=== PATIENT | male | born 1940 | race Two or more races ===

== ENCOUNTER → 2017-02-15 | Outpatient (REF) | payer MEDICARE ==
[2017-02-15 13:48] LABS: CALCIUM LEVEL 9.1 MG/DL (8.8-10.2); CREATININE FOR GFR 1.33 MG/DL (0.70-1.30); GLOMERULAR FILTRATION RATE 55.8 (>42); POTASSIUM SERUM 4.4 MEQ/L (3.5-5.1)
== END ==
LOC: M SFHCPLAZ 10:30
PROVIDERS: ATTEND Family Medicine
DX: E11.21 Type 2 diabetes mellitus with diabetic nephropathy (principal)
CPT/HCPCS: 80048; 83036; G0463

== ENCOUNTER → 2017-10-06 | Outpatient (REF) | payer MEDICARE ==
[2017-10-06 13:11] LABS: ANION GAP 8 MEQ/L (8-16); BLOOD UREA NITROGEN 18 MG/DL (7-18); CALCIUM LEVEL 9.4 MG/DL (8.8-10.2); CARBON DIOXIDE LEVEL 30 MEQ/L (21-32); CHLORIDE LEVEL 103 MEQ/L (98-107); CHOLESTEROL LEVEL 140 MG/DL (<200); CHOLESTEROL RISK RATIO 3.043 (<5); CREATININE FOR GFR 1.14 MG/DL (0.70-1.30); GLOMERULAR FILTRATION RATE > 60.0 (>42); GLUCOSE, FASTING 158 MG/DL (70-100); HDL CHOLESTEROL 46 MG/DL (>40); LDL CHOLESTEROL 61.4 MG/DL (<100); NON-HDL-C 94 MG/DL; POTASSIUM SERUM 4.7 MEQ/L (3.5-5.1); PSA SCREENING 2.16 NG/ML (< 4.0); SODIUM LEVEL 141 MEQ/L (136-145); TRIGLYCERIDES LEVEL 163 MG/DL (<150)
[2017-10-06 13:18] LABS: ESTIMATED AVERAGE GLUCOSE 151 MG/DL (60-110); HEMOGLOBIN A1c 6.9 %
[2017-10-06 13:20] LABS: MAU/CREAT RATIO 75.7 MCG/MG (0.0-30.0)
== END ==
LOC: M SFHCPLAZ 08:07
DX: Z12.5 Encounter for screening for malignant neoplasm of prostate (principal); E11.9 Type 2 diabetes mellitus without complications
CPT/HCPCS: 83036

== ENCOUNTER → 2017-12-05 | Outpatient (REF) | payer MEDICARE ==
[2017-12-05 18:42] LABS: ANION GAP 7 MEQ/L (8-16); BLOOD UREA NITROGEN 18 MG/DL (7-18); CALCIUM LEVEL 9.5 MG/DL (8.8-10.2); CARBON DIOXIDE LEVEL 26 MEQ/L (21-32); CHLORIDE LEVEL 105 MEQ/L (98-107); CREATININE FOR GFR 1.45 MG/DL (0.70-1.30); GLOMERULAR FILTRATION RATE 50.4 (>42); GLUCOSE, FASTING 168 MG/DL (70-100); POTASSIUM SERUM 4.3 MEQ/L (3.5-5.1); SODIUM LEVEL 138 MEQ/L (136-145)
== END ==
LOC: M LABDRAWP 17:14
DX: N17.9 Acute kidney failure, unspecified (principal)
CPT/HCPCS: 80048

== ENCOUNTER → 2017-12-07 | Outpatient (REF) | payer MEDICARE ==
[2017-12-07 14:11] LABS: APPEARANCE, URINE MANUAL HAZY (CLEAR); COLOR, URINE MANUAL YELLOW (YELLOW)
[2017-12-07 14:12] LABS: BILIRUBIN, URINE MANUAL NEGATIVE (NEGATIVE); BLOOD URINE MANUAL POSITIVE (NEGATIVE); GLUCOSE, URINE (UA) MANUAL TRACE(50 MG/DL) mg/dL (NEGATIVE); KETONE, URINE MANUAL NEGATIVE (NEGATIVE); LEUKOCYTE ESTERASE, URINE MAN POSITIVE (NEGATIVE); MICROSCOPIC INDICATED? MAN YES (NO); NITRITE, URINE MANUAL NEGATIVE (NEGATIVE); PROTEIN, URINE MANUAL 2+ mg/dL (NEGATIVE); RBC, URINE 20-30 /hpf (0-3); SPECIFIC GRAVITY,URINE MANUAL 1.025 (1.002-1.035); UROBILINOGEN, URINE MANUAL NORMAL (NORMAL)
[2017-12-07 14:13] LABS: AMORPHOUS SEDIMENT, URINE SMALL AMOUNT (NEGATIVE); BACTERIA, URINE SMALL AMOUNT; HYALINE CAST, URINE 0-1 /lpf (0-1); MICROSCOPIC EXAM PERFORMED; MUCUS, URINE MOD AMOUNT (NEGATIVE); SQUAMOUS EPITHELIAL CELL URINE SMALL AMOUNT /hpf (SMALL AMT)
== END ==
LOC: M SMT 13:12
DX: Z01.818 Encounter for other preprocedural examination (principal); N20.0 Calculus of kidney
CPT/HCPCS: 81000

== ENCOUNTER → 2017-12-07 | Outpatient (CLI) | payer MEDICARE | LOC: M SMT 13:57 | DX: Z01.818 Encounter for other preprocedural examination (principal); N20.0 Calculus of kidney ==

== ENCOUNTER → 2017-12-07 | Outpatient (CLI) | payer MEDICARE ==
[2017-12-07 18:19] LABS: INR 1.02; PROTHROMBIN TIME 13.5 SECONDS (12.4-14.5)
[2017-12-07 18:53] LABS: ANION GAP 6 MEQ/L (8-16); BLOOD UREA NITROGEN 19 MG/DL (7-18); CALCIUM LEVEL 8.9 MG/DL (8.8-10.2); CARBON DIOXIDE LEVEL 28 MEQ/L (21-32); CHLORIDE LEVEL 107 MEQ/L (98-107); CREATININE FOR GFR 1.46 MG/DL (0.70-1.30); GLUCOSE, FASTING 197 MG/DL (70-100); POTASSIUM SERUM 4.6 MEQ/L (3.5-5.1); SODIUM LEVEL 141 MEQ/L (136-145)
[2017-12-07 18:54] LABS: HEMATOCRIT 49.8 % (42.0-52.0); HEMOGLOBIN 16.3 g/dl (13.5-17.5); MEAN CORPUSCULAR HEMOGLOBIN 29.2 pg (27.0-33.0); MEAN CORPUSCULAR HGB CONC 32.7 g/dl (32.0-36.5); MEAN CORPUSCULAR VOLUME 89.2 fl (80.0-96.0); PLATELET COUNT, AUTOMATED 332 10^3/uL (150-450); RED BLOOD COUNT 5.58 10^6/uL (4.30-6.10); RED CELL DISTRIBUTION WIDTH 14.6 % (11.5-14.5); WHITE BLOOD COUNT 13.6 10^3/uL (4.0-10.0)
== END ==
LOC: M SMT 14:21
DX: Z01.818 Encounter for other preprocedural examination (principal); N20.0 Calculus of kidney
CPT/HCPCS: 80048

== ENCOUNTER 2017-12-19 06:58 | Day surgery (SDC) | payer MEDICARE ==
[2017-12-19] MEDS ORDERED: LR 1,000 ML IV ×2 (07:45→12:45)
[2017-12-19 07:47] LABS: BEDSIDE GLUCOSE 179 MG/DL (83-110)
[2017-12-19] MEDS ORDERED: fentaNYL 100 MCG/2 ML INJECTION (J3010) As Ordered (08:04)
[2017-12-19] MEDS ORDERED: PROPOFOL 200 MG/20 ML VIAL As Ordered (08:04)
[2017-12-19] MEDS ORDERED: LIDOCAINE 2% INJ 100 MG/5 ML SDV (FOR ANES.) As Ordered (08:04)
[2017-12-19] MEDS ORDERED: MIDAZOLAM INJ 2 MG/2 ML VIAL (J2250) As Ordered (08:04)
[2017-12-19] MEDS ORDERED: ATENOLOL 25 MG TAB As Ordered (08:07)
[2017-12-19] MEDS ORDERED: ATENOLOL 25 MG TAB PO (08:15)
[2017-12-19] MEDS ORDERED: ONDANSETRON 4MG/2ML VIAL (J2405) As Ordered ×2 (08:44→09:59)
[2017-12-19] MEDS ORDERED: ePHEDrine SULFATE 25 MG/5 ML(5MG/ML) SYRINGE As Ordered (09:39)
[2017-12-19] MEDS ORDERED: KETOROLAC 60 MG/2 ML VIAL (J1885) As Ordered (09:59)
[2017-12-19] MEDS ORDERED: METOCLOPRAMIDE INJ 10MG/2ML VIAL (J2765) As Ordered (09:59)
[2017-12-19] MEDS ORDERED: diphenhydrAMINE INJ 50MG/ML VIAL (J1200) As Ordered (09:59)
[2017-12-19] MEDS: CONRAY-60 60% 50ML VIAL (Q9961) As Ordered (10:00)
[2017-12-19] MEDS ORDERED: oxyBUTYnin 5 MG TAB PO (12:30)
[2017-12-19] MEDS ORDERED: PERCOCET 5MG/325MG TAB PO ×2 (12:30)
[2017-12-19] MEDS ORDERED: ONDANSETRON 4MG/2ML VIAL (J2405) IV (12:45)
[2017-12-19] MEDS ORDERED: fentaNYL 100 MCG/2 ML INJECTION (J3010) IV (12:45)
== END 2017-12-19 12:56 | disposition home or self-care (01) ==
LOC: M SDC 06:58
DX: N20.0 Calculus of kidney (principal); I25.10 Atherosclerotic heart disease of native coronary artery without angina pectoris; I25.2 Old myocardial infarction; E78.5 Hyperlipidemia, unspecified; Z79.82 Long term (current) use of aspirin; K21.9 Gastro-esophageal reflux disease without esophagitis; E11.9 Type 2 diabetes mellitus without complications; Z79.899 Other long term (current) drug therapy
CPT/HCPCS: 52356

== ENCOUNTER → 2018-02-24 | Outpatient (CLI) | payer MEDICARE ==
[2018-02-24 17:45] LABS: CHOLESTEROL LEVEL 151 MG/DL (<200); CHOLESTEROL RISK RATIO 3.355 (<5); HDL CHOLESTEROL 45 MG/DL (>40); LDL CHOLESTEROL 84.4 MG/DL (<100); NON-HDL-C 106 MG/DL; TRIGLYCERIDES LEVEL 108 MG/DL (<150)
== END ==
LOC: M WUC 12:23
DX: I25.10 Atherosclerotic heart disease of native coronary artery without angina pectoris (principal)
CPT/HCPCS: 80061

== ENCOUNTER → 2018-05-10 | Outpatient (REF) | payer MEDICARE | LOC: M SFHCPLAZ 09:05 | DX: R06.09 Other forms of dyspnea (principal); E11.9 Type 2 diabetes mellitus without complications; R31.9 Hematuria, unspecified; Z53.8 Procedure and treatment not carried out for other reasons ==

== ENCOUNTER → 2018-06-07 | Outpatient (REF) | payer MEDICARE ==
[2018-06-07 10:39] LABS: BASO # 0.1 10^3/uL (0.0-0.2); BASO % 0.6 % (0.0-1.0); EOS # 0.2 10^3/uL (0.0-0.50); EOS % 1.8 % (0.0-3.0); HEMATOCRIT 51.2 % (42.0-52.0); IMMATURE GRANULOCYTE % 0.5 % (0-3.0); LYMPH # 2.4 10^3/uL (1.5-4.5); LYMPH % 22.7 % (24.0-44.0); MEAN CORPUSCULAR HEMOGLOBIN 30.1 pg (27.0-33.0); MEAN CORPUSCULAR HGB CONC 33.2 g/dl (32.0-36.5); MEAN CORPUSCULAR VOLUME 90.6 fl (80.0-96.0); MONO # 0.8 10^3/uL (0.0-0.8); MONO % 7.5 % (0.0-5.0); NEUTROPHILS # 7.1 10^3/uL (1.8-7.7); NEUTROPHILS % 66.9 % (36.0-66.0); PLATELET COUNT, AUTOMATED 256 10^3/uL (150-450); RED BLOOD COUNT 5.65 10^6/uL (4.30-6.10); RED CELL DISTRIBUTION WIDTH 14.2 % (11.5-14.5); WHITE BLOOD COUNT 10.6 10^3/uL (4.0-10.0)
[2018-06-07 10:40] LABS: APPEARANCE, URINE CLEAR (CLEAR); BACTERIA, URINE AUTO NEGATIVE (NEGATIVE); BILIRUBIN, URINE AUTO NEGATIVE (NEGATIVE); BLOOD, URINE BLOOD NEGATIVE (NEGATIVE); COLOR, URINE YELLOW (YELLOW); GLUCOSE, URINE (UA) AUTO 2+ mg/dL (NEGATIVE); KETONE, URINE AUTO NEGATIVE (NEGATIVE); LEUKOCYTE ESTERASE, URINE AUTO NEGATIVE (NEGATIVE); MUCUS, URINE SMALL (NEGATIVE); NITRITE, URINE AUTO NEGATIVE (NEGATIVE); PROTEIN, URINE AUTO NEGATIVE (NEGATIVE); RBC, URINE AUTO 1 /HPF (0-3); SQUAMOUS EPITHELIAL CELL UR AU 0 /HPF (0-6); WBC, URINE AUTO 1 /HPF (0-3)
[2018-06-07 11:05] LABS: ANION GAP 9 MEQ/L (8-16); BLOOD UREA NITROGEN 18 MG/DL (7-18); CALCIUM LEVEL 9.4 MG/DL (8.8-10.2); CARBON DIOXIDE LEVEL 25 MEQ/L (21-32); CHLORIDE LEVEL 106 MEQ/L (98-107); CREATININE FOR GFR 1.27 MG/DL (0.70-1.30); GLOMERULAR FILTRATION RATE 58.5 (>42); GLUCOSE, FASTING 205 MG/DL (70-100); NT-PRO BNP 53 PG/ML (<450); POTASSIUM SERUM 4.5 MEQ/L (3.5-5.1); SODIUM LEVEL 140 MEQ/L (136-145)
[2018-06-07 13:28] LABS: MALB URINE SIEMENS 83.6 MG/L
[2018-06-07 13:30] LABS: MAU/CREAT RATIO 46.7 MCG/MG (0.0-30.0)
== END ==
LOC: M SFHCPLAZ 08:06
DX: R06.09 Other forms of dyspnea (principal); E11.9 Type 2 diabetes mellitus without complications; R31.9 Hematuria, unspecified
CPT/HCPCS: 82043

== ENCOUNTER → 2018-10-16 | Outpatient (REF) | payer MEDICARE ==
[~2018-10-16] MED LIST: ASPI1TAB15 PO; ATOR80TA59 PO; CEFD1CAP8 PO; FLOM0.4C39 PO; GLIP5TAB20 PO; HYDR12CA PO; LISI-542 PO; METF500T4 PO; TENO1TAB3 PO; TRAV04OPD OU
[2018-10-16 11:17] LABS: CALCIUM LEVEL 8.7 MG/DL (8.8-10.2); CHOLESTEROL RISK RATIO 2.5 (<5); CREATININE FOR GFR 1.37 MG/DL (0.70-1.30); GLOMERULAR FILTRATION RATE 53.6 (>42); HEMOGLOBIN A1c 8.4 %
[2018-10-16 11:19] LABS: MAU/CREAT RATIO 70.6 MCG/MG (0.0-30.0)
== END ==
LOC: M SFHCPLAZ 09:04
PROVIDERS: ATTEND Family Medicine
DX: E11.21 Type 2 diabetes mellitus with diabetic nephropathy (principal); E78.2 Mixed hyperlipidemia

== ENCOUNTER → 2019-07-16 | Outpatient (REF) | payer MEDICARE ==
[~2019-07-16] MED LIST changes: +METF-791 PO; -METF500T4 PO
[2019-07-16 14:20] LABS: CALCIUM LEVEL 9.4 MG/DL (8.8-10.2); CREATININE FOR GFR 1.37 MG/DL (0.70-1.30); GLOMERULAR FILTRATION RATE 53.5 (>42); POTASSIUM SERUM 5.1 MEQ/L (3.5-5.1)
[2019-07-16 14:43] LABS: HEMOGLOBIN A1c 7.9 %
== END ==
LOC: M SFHCSACK 10:26
PROVIDERS: ATTEND Physician Assistant
DX: E11.21 Type 2 diabetes mellitus with diabetic nephropathy (principal)

== ENCOUNTER → 2019-08-03 | Outpatient (CLI) | payer MEDICARE ==
[2019-08-03 20:33] LABS: CALCIUM LEVEL 9.8 MG/DL (8.8-10.2); CREATININE FOR GFR 1.39 MG/DL (0.70-1.30); GLOMERULAR FILTRATION RATE 52.6 (>42); POTASSIUM SERUM 4.7 MEQ/L (3.5-5.1)
== END ==
LOC: M WUC 16:55
PROVIDERS: ATTEND Nurse Practitioner Family
DX: K59.01 Slow transit constipation (principal)

== ENCOUNTER → 2019-08-08 | Outpatient (CLI) | payer MEDICARE ==
[~2019-08-08] MED LIST changes: +GASTROGRAFIN SOLUTION 30ML (Q9963) As Ordered ONE; +ISOVUE-370 76% 100ML VIAL (Q9967) As Ordered ONE
--- NOTE | 2019-08-08 17:38 | REP ---
HISTORY: History of pancreatic mass. COMPARISON: The only prior for comparison is 12/01/2017, a noncontrast enhanced exam. CONTRAST: 100 mL [id number]. There are scattered patchy densities in the lung bases having the appearance of fibrotic and/or subsegmental atelectatic changes. When compared with the prior exam, they appear stable. Seen at the hepatic dome, there is a tiny unchanged low density lesion measuring less than a centimeter. Seen more posteriorly at the same level, there is a new 1.1 cm sized low density focus. These areas are seen on both immediate and delayed imaging. There are no definite enhancing masses. The spleen, adrenal glands, and kidneys are unchanged. There are multiple large bilateral renal cysts. The hydronephrosis seen previously and on the right is no longer present. There is a mass in the head of the pancreas which measures 3.3 x 3.7 x 3.2 cm. It is better imaged on today's contrast enhanced examination compared to the prior noncontrast enhanced examination, but it appears to have increased in size. No peripancreatic adenopathy has developed. The abdominal aorta and periaortic regions are unchanged. No free fluid or free air is seen in the abdomen. The bowel loops and their mesenteries are unchanged and again seen to be within normal limits. CT PELVIS: Once again, there are surgical clips in the pelvis, status quo. There is no pelvic mass or adenopathy. 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 There is no free fluid or free air. The bowel loops and their mesenteries are within normal limits. Bone window technique throughout the examination shows no significant change in the appearance of the osseous structures. IMPRESSION: 1. Two hepatic lesions as described above. Etiology uncertain but one of the two appears stable. I cannot confirm the second lesion was present on the prior exam. Abdominal MRI is recommended. 2. Pancreatic head mass as described above. Consider further evaluation with pancreatic MRI. 3. Stable appearing bilateral renal cysts. 4. No change in the appearance of the prostate gland. It appears asymmetric. Consider urological consultation. 5. Other findings as described above. Electronically Signed by Stephen Hernandez DO 08/09/2019 04:14 P
== END ==
LOC: M RAD 14:27
PROVIDERS: ATTEND Nurse Practitioner Family
DX: K86.89 Other specified diseases of pancreas (principal); K76.89 Other specified diseases of liver; N28.1 Cyst of kidney, acquired
CPT/HCPCS: 74177; Q9963; Q9967

== ENCOUNTER → 2019-08-31 | Outpatient (CLI) | payer MEDICARE ==
[~2019-08-31] MED LIST changes: -GASTROGRAFIN SOLUTION 30ML (Q9963) As Ordered ONE; -ISOVUE-370 76% 100ML VIAL (Q9967) As Ordered ONE
[2019-08-31 14:06] LABS: ALBUMIN 3.6 GM/DL (3.2-5.2); BILIRUBIN,DIRECT 0.2 MG/DL (0.0-0.2); BILIRUBIN,TOTAL 0.7 MG/DL (0.2-1.0); CHOLESTEROL RISK RATIO 3.642 (<5); TOTAL PROTEIN 7.1 GM/DL (6.4-8.2)
== END ==
LOC: M WUC 10:44
PROVIDERS: ATTEND Internal Medicine Cardiovascular Disease
DX: I25.10 Atherosclerotic heart disease of native coronary artery without angina pectoris (principal)

== ENCOUNTER → 2019-09-05 | Outpatient (CLI) | payer MEDICARE ==
[~2019-09-05] MED LIST changes: +PROHANCE 279.3MG/ML 5ML VIAL (A9576) As Ordered ONE
--- NOTE | 2019-09-05 11:53 | REP ---
MRI ABDOMEN AND PANCREAS WITHOUT AND WITH IV GADOLINIUM: HISTORY: Pancreatic mass. Comparison is made with CT studies of the abdomen from August 08, 2019 and December 01, 2017. These have shown a low-density lesion in the pancreatic head. TECHNIQUE: Axial and coronal imaging planes utilized. T1- and T2-weighted sequences include spin-echo, fast spin echo, in- and [id number], and dynamically acquired sequential post contrast images. Contrast enhancement dose is 9 mL of intravenous ProHance, half-dose protocol. MRI FINDINGS: T2-weighted precontrast images confirm the presence of a cystic mass occupying the head of the pancreas. This corresponds to the CT findings. This measures 3.6 cm in greatest diameter x 2.6 x 2.9 cm. On T2-weighted scans it appears to be multicystic with thin septations between subcentimeter cystic components. It does not show discernible contrast enhancement on dynamically acquired post contrast imaging. There is no evidence of a central scar or CT evidence of calcification within the lesion. It is low T1 in signal intensity. T2-weighted scans also show a few scattered tiny cyst in the body of the pancreas. There are simple cysts in each kidney and there are several small hepatic cysts. No liver mass lesion is seen. There is no evidence of retroperitoneal or upper abdominal lymphadenopathy. No biliary ductal dilation is observed. The main pancreatic duct is not dilated. The lesion does not appear to have change substantially in the interval since the December 01, 2017 prior study. There are some pancreatic calcifications adjacent to the lesion anteriorly on the CT images. IMPRESSION: There is a 3.6 cm cystic mass in the head of the pancreas with nonenhancing small sub-centimeter cystic components. Slow apparent growth. Findings most compatible with serous cystadenoma or branch duct type intraductal papillary mucinous neoplasm (IPMN). Electronically Signed by Alex Underwood MD 09/05/2019 06:16 P
== END ==
LOC: M RAD 08:36
PROVIDERS: ATTEND Nurse Practitioner Family
DX: K86.89 Other specified diseases of pancreas (principal)
CPT/HCPCS: 74183; A9576

== ENCOUNTER → 2019-10-01 | Outpatient (CLI) | payer MEDICARE ==
[~2019-10-01] MED LIST changes: -PROHANCE 279.3MG/ML 5ML VIAL (A9576) As Ordered ONE
[2019-10-01 14:43] LABS: ALBUMIN 3.5 GM/DL (3.2-5.2); ALT/SGPT 21 U/L (12-78); BILIRUBIN,TOTAL 0.6 MG/DL (0.2-1.0); BLOOD UREA NITROGEN 15 MG/DL (7-18); CALCIUM LEVEL 9.5 MG/DL (8.8-10.2); CARBON DIOXIDE LEVEL 27 MEQ/L (21-32); CHLORIDE LEVEL 104 MEQ/L (98-107); CHOLESTEROL LEVEL 138 MG/DL (<200); CHOLESTEROL RISK RATIO 3.631 (<5); CREATININE FOR GFR 1.22 MG/DL (0.70-1.30); GLOMERULAR FILTRATION RATE > 60.0 (>42); GLUCOSE, FASTING 110 MG/DL (70-100); HDL CHOLESTEROL 38 MG/DL (>40); LDL CHOLESTEROL 75 MG/DL (<100); NON-HDL-C 100 MG/DL; POTASSIUM SERUM 4.6 MEQ/L (3.5-5.1); SODIUM LEVEL 140 MEQ/L (136-145); TOTAL PROTEIN 7.1 GM/DL (6.4-8.2); TRIGLYCERIDES LEVEL 125 MG/DL (<150)
[2019-10-01 18:00] LABS: HEMOGLOBIN A1c 7.7 %
== END ==
LOC: M WUC 11:20
PROVIDERS: ATTEND Nurse Practitioner Family
DX: E11.21 Type 2 diabetes mellitus with diabetic nephropathy (principal); E78.2 Mixed hyperlipidemia; N40.0 Benign prostatic hyperplasia without lower urinary tract symptoms
CPT/HCPCS: 36415; 80053; 80061; 83036; G0103

== ENCOUNTER → 2020-02-25 | Outpatient (CLI) | payer MEDICARE ==
[~2020-02-25] MED LIST changes: -METF-791 PO; +METF-838 PO
== END ==
LOC: M LABSMTC 09:48
PROVIDERS: ATTEND Anesthesiology
DX: Z03.818 Encounter for observation for suspected exposure to other biological agents ruled out (principal); Z11.59 Encounter for screening for other viral diseases
CPT/HCPCS: C9803; U0003

== ENCOUNTER 2020-02-28 06:54 | Day surgery (SDC) | payer MEDICARE ==
[~2020-02-28] VITALS: Ht 167.6 cm; Wt 93.0 kg
[~2020-02-28 06:54] MED LIST changes: +CEFUROXIME 1MG/0.1ML INTRACAMERAL INJ As Ordered ONE; +DUOVISC (0.50ML VISCOAT/0.55ML PROVISC) OPHTH KIT As Ordered ONE; +POVIDONE-IODINE 5% OPHTH PREP SOL 30ML As Ordered ONE
[2020-02-28] MEDS ORDERED: TROPICAMIDE 1% OPHTH SOLN 2ML OS ONE (07:00)
[2020-02-28] MEDS ORDERED: PROPARACAINE 0.5% OPHTH SOL 15ML OS ONE (07:00)
[2020-02-28] MEDS ORDERED: OFLOXACIN 0.3 % (OCUFLOX) OPTH SOL 5ML OS ONE (07:00)
[2020-02-28] MEDS ORDERED: PHENYLEPHRINE 2.5% OPHTH SOL 2ML OS ONE (07:00)
[2020-02-28] MEDS ORDERED: fentaNYL 100 MCG/2 ML INJECTION (J3010) As Ordered ONE (07:57)
[2020-02-28] MEDS ORDERED: MIDAZOLAM INJ 2MG/2ML VIAL (J2250 PER 1MG) As Ordered ONE (07:57)
[2020-02-28] MEDS ORDERED: BSS IRR 500ML/OMIDRIA 4ML IRR BAG (OR ONLY) (J1097 PER ML) As Ordered ONE (08:19)
[2020-02-28 09:00] VITALS: BP 130/67
== END 2020-02-28 09:30 | disposition home or self-care (01) ==
LOC: M SDC 06:54
PROVIDERS: ATTEND Ophthalmology
DX: H25.12 Age-related nuclear cataract, left eye (principal); I25.2 Old myocardial infarction; I10 Essential (primary) hypertension; E78.00 Pure hypercholesterolemia, unspecified; Z98.61 Coronary angioplasty status; E11.9 Type 2 diabetes mellitus without complications; K21.9 Gastro-esophageal reflux disease without esophagitis; Z79.82 Long term (current) use of aspirin; Z79.84 Long term (current) use of oral hypoglycemic drugs; Z79.899 Other long term (current) drug therapy
CPT/HCPCS: 66984; 92015; J1097; J2250; J3010; V2632

== ENCOUNTER → 2020-03-08 | Outpatient (CLI) | payer MEDICARE ==
[~2020-03-08] MED LIST changes: +ASPI-546 PO; -ASPI1TAB15 PO; -CEFUROXIME 1MG/0.1ML INTRACAMERAL INJ As Ordered ONE; -DUOVISC (0.50ML VISCOAT/0.55ML PROVISC) OPHTH KIT As Ordered ONE; -POVIDONE-IODINE 5% OPHTH PREP SOL 30ML As Ordered ONE
== END ==
LOC: M LABSMTC 11:59
PROVIDERS: ATTEND Anesthesiology
DX: Z01.818 Encounter for other preprocedural examination (principal); Z11.59 Encounter for screening for other viral diseases
CPT/HCPCS: C9803; U0003

== ENCOUNTER → 2020-03-13 | Day surgery (SDC) | payer MEDICARE ==
[~2020-03-13] VITALS: Ht 167.6 cm; Wt 93.4 kg
[~2020-03-13] MED LIST changes: +BSS IRR 500ML/OMIDRIA 4ML IRR BAG (OR ONLY) (J1097 PER ML) As Ordered ONE; +CEFUROXIME 1MG/0.1ML INTRACAMERAL INJ As Ordered ONE; +DUOVISC (0.50ML VISCOAT/0.55ML PROVISC) OPHTH KIT As Ordered ONE; +MIDAZOLAM INJ 2MG/2ML VIAL (J2250 PER 1MG) As Ordered ONE; +OFLOXACIN 0.3 % (OCUFLOX) OPTH SOL 5ML OD ONE; +PHENYLEPHRINE 2.5% OPHTH SOL 2ML OD ONE; +POVIDONE-IODINE 5% OPHTH PREP SOL 30ML As Ordered ONE; +PROPARACAINE 0.5% OPHTH SOL 15ML OD ONE; +TROPICAMIDE 1% OPHTH SOLN 2ML OD ONE; +fentaNYL 100 MCG/2 ML INJECTION (J3010) As Ordered ONE
[2020-03-13 09:13] VITALS: BP 155/76
== END | disposition home or self-care (01) ==
LOC: M SDC 08:33
PROVIDERS: ATTEND Ophthalmology
DX: H25.11 Age-related nuclear cataract, right eye (principal); I25.10 Atherosclerotic heart disease of native coronary artery without angina pectoris; Z79.84 Long term (current) use of oral hypoglycemic drugs; Z98.61 Coronary angioplasty status; I25.2 Old myocardial infarction; Z79.899 Other long term (current) drug therapy; I10 Essential (primary) hypertension; K21.9 Gastro-esophageal reflux disease without esophagitis; E78.5 Hyperlipidemia, unspecified; E11.9 Type 2 diabetes mellitus without complications; Z87.891 Personal history of nicotine dependence; Z79.82 Long term (current) use of aspirin
CPT/HCPCS: 66984; J1097; J2250; J3010; V2632

== ENCOUNTER → 2020-04-18 | Outpatient (CLI) | payer MEDICARE ==
[~2020-04-18] MED LIST changes: -BSS IRR 500ML/OMIDRIA 4ML IRR BAG (OR ONLY) (J1097 PER ML) As Ordered ONE; -CEFUROXIME 1MG/0.1ML INTRACAMERAL INJ As Ordered ONE; -DUOVISC (0.50ML VISCOAT/0.55ML PROVISC) OPHTH KIT As Ordered ONE; -MIDAZOLAM INJ 2MG/2ML VIAL (J2250 PER 1MG) As Ordered ONE; -OFLOXACIN 0.3 % (OCUFLOX) OPTH SOL 5ML OD ONE; -PHENYLEPHRINE 2.5% OPHTH SOL 2ML OD ONE; -POVIDONE-IODINE 5% OPHTH PREP SOL 30ML As Ordered ONE; -PROPARACAINE 0.5% OPHTH SOL 15ML OD ONE; -TROPICAMIDE 1% OPHTH SOLN 2ML OD ONE; -fentaNYL 100 MCG/2 ML INJECTION (J3010) As Ordered ONE
[2020-04-18 15:33] LABS: BASO # 0.1 10^3/uL (0.0-0.2); BASO % 0.4 % (0.0-1.0); EOS # 0.3 10^3/uL (0.0-0.5); EOS % 2.4 % (0.0-3.0); HEMATOCRIT 54.5 % (42.0-52.0); HEMOGLOBIN 17.5 g/dl (13.5-17.5); LYMPH # 2.5 10^3/uL (1.5-5.0); LYMPH % 21.1 % (24.0-44.0); MEAN CORPUSCULAR HEMOGLOBIN 29.8 pg (27.0-33.0); MEAN CORPUSCULAR HGB CONC 32.1 g/dl (32.0-36.5); MEAN CORPUSCULAR VOLUME 92.7 fl (80.0-96.0); MONO % 8.5 % (0.0-5.0); NEUTROPHILS # 7.9 10^3/uL (1.5-8.5); PLATELET COUNT, AUTOMATED 280 10^3/uL (150-450); RED BLOOD COUNT 5.88 10^6/uL (4.30-6.10); WHITE BLOOD COUNT 11.8 10^3/uL (4.0-10.0)
[2020-04-18 15:57] LABS: ALBUMIN 3.6 GM/DL (3.2-5.2); ALT/SGPT 25 U/L (12-78); BILIRUBIN,TOTAL 0.8 MG/DL (0.2-1.0); BLOOD UREA NITROGEN 15 MG/DL (7-18); CALCIUM LEVEL 9.2 MG/DL (8.8-10.2); CARBON DIOXIDE LEVEL 29 MEQ/L (21-32); CHLORIDE LEVEL 104 MEQ/L (98-107); CHOLESTEROL LEVEL 149 MG/DL (<200); CHOLESTEROL RISK RATIO 3.634 (<5); CPK CREATINE PHOSPHOKINASE 57 U/L (39-308); CREATININE FOR GFR 1.21 MG/DL (0.70-1.30); GLOMERULAR FILTRATION RATE > 60.0 (>42); GLUCOSE, FASTING 141 MG/DL (70-100); HDL CHOLESTEROL 41 MG/DL (>40); LDL CHOLESTEROL 74 MG/DL (<100); NON-HDL-C 108 MG/DL; POTASSIUM SERUM 4.5 MEQ/L (3.5-5.1); SODIUM LEVEL 139 MEQ/L (136-145); TRIGLYCERIDES LEVEL 168 MG/DL (<150)
== END ==
LOC: M WUC 10:49
PROVIDERS: ATTEND Physician Assistant Medical
DX: E11.9 Type 2 diabetes mellitus without complications (principal); E78.5 Hyperlipidemia, unspecified; I10 Essential (primary) hypertension

== ENCOUNTER → 2020-06-08 | Outpatient (CLI) | payer MEDICARE ==
[2020-06-08 17:33] LABS: ALBUMIN 3.5 GM/DL (3.2-5.2); BILIRUBIN,DIRECT 0.3 MG/DL (0.0-0.2); BILIRUBIN,TOTAL 0.7 MG/DL (0.2-1.0); CHOLESTEROL RISK RATIO 3.568 (<5); TOTAL PROTEIN 6.5 GM/DL (6.4-8.2)
== END ==
LOC: M WUC 08:51
PROVIDERS: ATTEND Internal Medicine Cardiovascular Disease
DX: I25.10 Atherosclerotic heart disease of native coronary artery without angina pectoris (principal)

== ENCOUNTER → 2020-10-27 | Outpatient (CLI) | payer MEDICARE ==
[~2020-10-27] MED LIST changes: -LISI-542 PO; +LISI-898 PO
[2020-10-27 13:06] LABS: ALBUMIN 3.7 GM/DL (3.2-5.2); BILIRUBIN,DIRECT 0.2 MG/DL (0.0-0.2); BILIRUBIN,TOTAL 0.7 MG/DL (0.2-1.0); CHOLESTEROL RISK RATIO 2.937 (<5); TOTAL PROTEIN 6.9 GM/DL (6.4-8.2)
== END ==
LOC: M WUC 09:17
DX: I25.10 Atherosclerotic heart disease of native coronary artery without angina pectoris (principal)

== ENCOUNTER → 2020-12-30 | Outpatient (CLI) | payer MEDICARE ==
[2020-12-30 12:32] LABS: BASO # 0.1 10^3/uL (0.0-0.2); BASO % 0.6 % (0.0-1.0); EOS # 0.2 10^3/uL (0.0-0.5); EOS % 2.1 % (0.0-3.0); HEMATOCRIT 54.8 % (42.0-52.0); HEMOGLOBIN 17.6 g/dl (13.5-17.5); LYMPH # 2.4 10^3/uL (1.5-5.0); LYMPH % 23.6 % (24.0-44.0); MEAN CORPUSCULAR HEMOGLOBIN 29.4 pg (27.0-33.0); MEAN CORPUSCULAR HGB CONC 32.1 g/dl (32.0-36.5); MEAN CORPUSCULAR VOLUME 91.5 fl (80.0-96.0); MONO # 0.8 10^3/uL (0.0-0.8); MONO % 7.4 % (2.0-8.0); NEUTROPHILS # 6.6 10^3/uL (1.5-8.5); NEUTROPHILS % 65.8 % (36.0-66.0); PLATELET COUNT, AUTOMATED 252 10^3/uL (150-450); RED BLOOD COUNT 5.99 10^6/uL (4.30-6.10); WHITE BLOOD COUNT 10.1 10^3/uL (4.0-10.0)
[2020-12-30 12:46] LABS: HEMOGLOBIN A1c 7.5 %
[2020-12-30 13:01] LABS: ALBUMIN 3.6 GM/DL (3.2-5.2); ALT/SGPT 21 U/L (12-78); BILIRUBIN,TOTAL 0.6 MG/DL (0.2-1.0); BLOOD UREA NITROGEN 16 MG/DL (7-18); CALCIUM LEVEL 9.5 MG/DL (8.8-10.2); CARBON DIOXIDE LEVEL 27 MEQ/L (21-32); CHLORIDE LEVEL 107 MEQ/L (98-107); CHOLESTEROL LEVEL 162 MG/DL (<200); CHOLESTEROL RISK RATIO 3.375 (<5); CREATININE FOR GFR 1.16 MG/DL (0.70-1.30); GLOMERULAR FILTRATION RATE > 60.0 (>42); GLUCOSE, FASTING 127 MG/DL (70-100); HDL CHOLESTEROL 48 MG/DL (>40); LDL CHOLESTEROL 95 MG/DL (<100); MAGNESIUM LEVEL 1.8 MG/DL (1.8-2.4); NON-HDL-C 114 MG/DL; POTASSIUM SERUM 4.6 MEQ/L (3.5-5.1); SODIUM LEVEL 139 MEQ/L (136-145); TOTAL PROTEIN 6.8 GM/DL (6.4-8.2); TRIGLYCERIDES LEVEL 95 MG/DL (<150)
[2020-12-30 13:24] LABS: MALB URINE SIEMENS 90.2 MG/L; MAU/CREAT RATIO 86.7 MCG/MG (0.0-30.0)
== END ==
LOC: M WUC 09:24
PROVIDERS: ATTEND Nurse Practitioner Family
DX: N40.0 Benign prostatic hyperplasia without lower urinary tract symptoms (principal); I10 Essential (primary) hypertension; E11.21 Type 2 diabetes mellitus with diabetic nephropathy; E78.2 Mixed hyperlipidemia
CPT/HCPCS: 36415; 80053; 80061; 82043; 83036; 83735; 85025; G0103

== ENCOUNTER → 2021-05-19 | Outpatient (CLI) | payer MEDICARE ==
[2021-05-19 13:48] LABS: HEMOGLOBIN A1c 8.1 %
[2021-05-19 14:01] LABS: CREATININE, URINE 82.4 MG/DL; MAU/CREAT RATIO 139.5 MCG/MG (0.0-30.0)
[2021-05-19 14:14] LABS: ALBUMIN 3.4 GM/DL (3.2-5.2); ALT/SGPT 20 U/L (12-78); BILIRUBIN,TOTAL 0.6 MG/DL (0.2-1.0); BLOOD UREA NITROGEN 17 MG/DL (7-18); CALCIUM LEVEL 9.4 MG/DL (8.8-10.2); CARBON DIOXIDE LEVEL 27 MEQ/L (21-32); CHLORIDE LEVEL 107 MEQ/L (98-107); CHOLESTEROL LEVEL 165 MG/DL (<200); GLOMERULAR FILTRATION RATE > 60.0 (>42); GLUCOSE, FASTING 184 MG/DL (70-100); HDL CHOLESTEROL 55 MG/DL (>40); LDL CHOLESTEROL 90 MG/DL (<100); NON-HDL-C 110 MG/DL; POTASSIUM SERUM 4.7 MEQ/L (3.5-5.1); SODIUM LEVEL 139 MEQ/L (136-145); TOTAL PROTEIN 6.8 GM/DL (6.4-8.2); TRIGLYCERIDES LEVEL 98 MG/DL (<150)
== END ==
LOC: M PLALAB 11:39
PROVIDERS: ATTEND Nurse Practitioner Family
DX: E78.2 Mixed hyperlipidemia (principal); E11.21 Type 2 diabetes mellitus with diabetic nephropathy

== ENCOUNTER → 2021-05-20 | Outpatient (CLI) | payer MEDICARE ==
[~2021-05-20] MED LIST changes: +PROHANCE 279.3MG/ML 15ML VIAL As Ordered ONE; +PROHANCE 279.3MG/ML 5ML VIAL As Ordered ONE
--- NOTE | 2021-05-20 16:38 | REP ---
INDICATION: PANCREATIC MASS- MRCP. COMPARISON: Comparison is made with prior MRI study from 05 September [address] study from August 08, 2019 and December 01, 2017. TECHNIQUE: Axial and coronal T1 and T2 weighted sequences include spin echo, fast spin echo, gradient echo, in and out of phase, and dynamically acquired sequential postcontrast images. The contrast enhancement dose is 17 mL of intravenous ProHance. An MRCP protocol is also carried out with maximum intensity projection images and source coronal scans. FINDINGS: Incidental findings include multiple bilateral renal cysts measuring up tor 9.2 cm in greatest diameter. No renal mass lesion is observed. There are several tiny stable hepatic cysts. There are also several tiny pancreatic tail cysts unchanged. Again noted is the multiloculated cystic lesion in the head of the pancreas. This measures 3.6 x 2.9 x 3.9 cm in overall dimension. Previously this measured 3.6 x 2.6 x 2.9 cm. It is essentially unchanged. Multiple thin septations are seen. No definite contrast enhancement. No other pancreatic mass lesion is observed. MRCP images show no evidence of biliary or pancreatic ductal dilation. The common bile duct appears to course posterior to the cystic mass in the head of the pancreas. It is not possible to tell if the cystic lesion communicates with the pancreatic duct. There is no evidence of upper abdominal adenopathy or other mass lesion. No ascites is seen. IMPRESSION: Essentially stable cystic mass in the head of the pancreas with nonenhancing small subcentimeter cystic components. 3.9 cm greatest dimension today. Findings remain most compatible with serous cystadenoma or branch duct type intraductal papillary mucinous neoplasm. Multiple simple renal cysts. <Electronically signed by Lizandro Underwood > 05/20/21 [id number]
== END ==
LOC: M RAD 13:35
PROVIDERS: ATTEND Nurse Practitioner Family
DX: K86.89 Other specified diseases of pancreas (principal)
CPT/HCPCS: 74183; A9576

== ENCOUNTER → 2021-09-09 | Outpatient (CLI) | payer MEDICARE ==
[~2021-09-09] MED LIST changes: -CEFD1CAP8 PO; +CEFD300C41 PO; -LISI-898 PO; +LISI5TAB11 PO; -PROHANCE 279.3MG/ML 15ML VIAL As Ordered ONE; -PROHANCE 279.3MG/ML 5ML VIAL As Ordered ONE
== END ==
LOC: M WUC 08:42
DX: K86.2 Cyst of pancreas (principal)

== ENCOUNTER → 2021-10-19 | Outpatient (CLI) | payer MEDICARE ==
[2021-10-19 13:03] LABS: ALT/SGPT 28 U/L (12-78); BILIRUBIN,TOTAL 0.9 MG/DL (0.2-1.0); BLOOD UREA NITROGEN 15 MG/DL (7-18); CALCIUM LEVEL 9.3 MG/DL (8.8-10.2); CARBON DIOXIDE LEVEL 27 MEQ/L (21-32); CHLORIDE LEVEL 105 MEQ/L (98-107); CREATININE FOR GFR 1.21 MG/DL (0.70-1.30); GLOMERULAR FILTRATION RATE > 60.0 (>35); GLUCOSE, FASTING 100 MG/DL (70-100); POTASSIUM SERUM 4.6 MEQ/L (3.5-5.1); SODIUM LEVEL 138 MEQ/L (136-145); TRIGLYCERIDES LEVEL 125 MG/DL (<150)
[2021-10-19 13:04] LABS: ALBUMIN 3.6 GM/DL (3.2-5.2); CHOLESTEROL LEVEL 157 MG/DL (<200); CHOLESTEROL RISK RATIO 3.078 (<5); HDL CHOLESTEROL 51 MG/DL (>40); LDL CHOLESTEROL 81 MG/DL (<100); NON-HDL-C 106 MG/DL; TOTAL PROTEIN 6.7 GM/DL (6.4-8.2)
[2021-10-19 13:12] LABS: MAU/CREAT RATIO 79.2 MCG/MG (0.0-30.0)
[2021-10-19 19:06] LABS: HEMOGLOBIN A1c 7.2 %
== END ==
LOC: M WUC 10:52
PROVIDERS: ATTEND Nurse Practitioner Family
DX: E11.21 Type 2 diabetes mellitus with diabetic nephropathy (principal); E78.2 Mixed hyperlipidemia; N40.0 Benign prostatic hyperplasia without lower urinary tract symptoms
CPT/HCPCS: 36415; 80053; 80061; 82043; 83036; G0103

== ENCOUNTER → 2022-04-28 | Outpatient (CLI) | payer MEDICARE ==
[2022-04-28 17:44] LABS: BASO # 0.1 10^3/uL (0.0-0.2); BASO % 0.8 % (0.0-1.0); EOS # 0.7 10^3/uL (0.0-0.5); EOS % 5.3 % (0.0-3.0); HEMATOCRIT 55.3 % (42.0-52.0); LYMPH # 2.8 10^3/uL (1.5-5.0); LYMPH % 22.2 % (24.0-44.0); MEAN CORPUSCULAR HEMOGLOBIN 30.4 pg (27.0-33.0); MONO # 0.9 10^3/uL (0.0-0.8); MONO % 7.3 % (2.0-8.0); NEUTROPHILS # 8.1 10^3/uL (1.5-8.5); NEUTROPHILS % 63.9 % (36.0-66.0); PLATELET COUNT, AUTOMATED 264 10^3/uL (150-450); RED BLOOD COUNT 5.82 10^6/uL (4.30-6.10); WHITE BLOOD COUNT 12.6 10^3/uL (4.0-10.0)
[2022-04-28 18:00] LABS: HEMOGLOBIN 17.7 g/dl (13.5-17.5)
[2022-04-28 18:40] LABS: ALBUMIN 3.8 GM/DL (3.2-5.2); BILIRUBIN,TOTAL 0.8 MG/DL (0.2-1.0); CALCIUM LEVEL 9.7 MG/DL (8.8-10.2); CHOLESTEROL RISK RATIO 2.659 (<5); CREATININE FOR GFR 1.31 MG/DL (0.70-1.30); POTASSIUM SERUM 5.3 MEQ/L (3.5-5.1); TOTAL PROTEIN 6.7 GM/DL (6.4-8.2)
[2022-04-28 19:06] LABS: HEMOGLOBIN A1c 7.8 %
[2022-04-28 19:23] LABS: MALB URINE SIEMENS 91.1 MG/L; MAU/CREAT RATIO 79.9 MCG/MG (0.0-30.0)
== END ==
LOC: M WUC 10:59
PROVIDERS: ATTEND Nurse Practitioner Family
DX: E11.21 Type 2 diabetes mellitus with diabetic nephropathy (principal); E78.2 Mixed hyperlipidemia; I10 Essential (primary) hypertension; N40.0 Benign prostatic hyperplasia without lower urinary tract symptoms
CPT/HCPCS: 36415; 80053; 80061; 82043; 83036; 85025; G0103

== ENCOUNTER → 2022-05-20 | Outpatient (CLI) | payer MEDICARE ==
[2022-05-20 15:56] LABS: ALBUMIN 3.8 GM/DL (3.2-5.2); BILIRUBIN,DIRECT 0.2 MG/DL (0.0-0.2); BILIRUBIN,TOTAL 0.6 MG/DL (0.2-1.0); TOTAL PROTEIN 7.2 GM/DL (6.4-8.2)
== END ==
LOC: M LAB 05-19 14:10
DX: K86.2 Cyst of pancreas (principal)

== ENCOUNTER → 2022-05-28 | Outpatient (CLI) | payer MEDICARE ==
[~2022-05-28] MED LIST changes: +ISOVUE-370 76% 100ML VIAL As Ordered ONE
== END ==
LOC: M RAD 14:02
PROVIDERS: ATTEND Nurse Practitioner Family
DX: K86.2 Cyst of pancreas (principal); Q61.02 Congenital multiple renal cysts
CPT/HCPCS: 74170; Q9967

== ENCOUNTER → 2022-11-16 | Outpatient (CLI) | payer MEDICARE ==
[~2022-11-16] MED LIST changes: -ISOVUE-370 76% 100ML VIAL As Ordered ONE
[2022-11-16 13:08] LABS: BASO # 0.1 10^3/uL (0.0-0.2); BASO % 0.6 % (0.0-1.0); EOS # 0.5 10^3/uL (0.0-0.5); EOS % 4.2 % (0.0-3.0); HEMATOCRIT 55.8 % (42.0-52.0); HEMOGLOBIN 17.8 g/dl (13.5-17.5); LYMPH # 2.7 10^3/uL (1.5-5.0); LYMPH % 21.7 % (24.0-44.0); MEAN CORPUSCULAR HGB CONC 31.9 g/dl (32.0-36.5); MEAN CORPUSCULAR VOLUME 93.9 fl (80.0-96.0); MONO # 0.8 10^3/uL (0.0-0.8); MONO % 6.8 % (2.0-8.0); NEUTROPHILS # 8.2 10^3/uL (1.5-8.5); NEUTROPHILS % 66.4 % (36.0-66.0); PLATELET COUNT, AUTOMATED 244 10^3/uL (150-450); RED BLOOD COUNT 5.94 10^6/uL (4.30-6.10); WHITE BLOOD COUNT 12.4 10^3/uL (4.0-10.0)
[2022-11-16 13:17] LABS: ALBUMIN 3.7 G/DL (3.2-5.2); ALKALINE PHOSPHATASE 94 U/L (46-116); ALT/SGPT 15 U/L (7.0-40); AST/SGOT 14 U/L (<34); BILIRUBIN,TOTAL 0.8 MG/DL (0.3-1.2); BLOOD UREA NITROGEN 15 MG/DL (9-23); CALCIUM LEVEL 9.6 MG/DL (8.3-10.6); CARBON DIOXIDE LEVEL 28 MMOL/L (20-31); CHLORIDE LEVEL 106 MMOL/L (98-107); CHOLESTEROL LEVEL 109 MG/DL (<200); CHOLESTEROL RISK RATIO 2.41 (<5); CREATININE FOR GFR 1.01 MG/DL (0.70-1.30); GLOMERULAR FILTRATION RATE > 60.0 (>35); GLUCOSE, FASTING 141 MG/DL (74-106); HDL CHOLESTEROL 45.2 MG/DL (>40); LDL CHOLESTEROL 44.2 MG/DL (<100); NON-HDL-C 63.8 MG/DL; POTASSIUM SERUM 4.8 MMOL/L (3.5-5.1); SODIUM LEVEL 140 MMOL/L (136-145); TOTAL PROTEIN 6.5 G/DL (5.7-8.2); TRIGLYCERIDES LEVEL 98 MG/DL (<150)
[2022-11-16 13:34] LABS: CREATININE, URINE 87.6 MG/DL
[2022-11-16 13:35] LABS: MAU/CREAT RATIO 100.4 MCG/MG (0.0-30.0)
[2022-11-16 14:05] LABS: HEMOGLOBIN A1c 8.5 % (4.0-6.0)
== END ==
LOC: M WUC 10:33
PROVIDERS: ATTEND Nurse Practitioner Family
DX: E11.21 Type 2 diabetes mellitus with diabetic nephropathy (principal); E78.2 Mixed hyperlipidemia; I10 Essential (primary) hypertension; Z12.5 Encounter for screening for malignant neoplasm of prostate
CPT/HCPCS: 36415; 80053; 80061; 82043; 83036; 85025; G0103

== ENCOUNTER → 2023-02-01 | Outpatient (REF) | payer MEDICARE ==
[2023-02-01 13:56] LABS: APPEARANCE, URINE CLEAR (CLEAR); BACTERIA, URINE AUTO NEGATIVE (NEGATIVE); BILIRUBIN, URINE AUTO NEGATIVE (NEGATIVE); BLOOD, URINE BLOOD NEGATIVE (NEGATIVE); COLOR, URINE YELLOW (YELLOW); GLUCOSE, URINE (UA) AUTO 3+ mg/dL (NEGATIVE); KETONE, URINE AUTO NEGATIVE (NEGATIVE); LEUKOCYTE ESTERASE, URINE AUTO NEGATIVE (NEGATIVE); MUCUS, URINE SMALL (NEGATIVE); NITRITE, URINE AUTO NEGATIVE (NEGATIVE); PROTEIN, URINE AUTO NEGATIVE (NEGATIVE); RBC, URINE AUTO 0 /HPF (0-3); SPECIFIC GRAVITY URINE AUTO 1.023 (1.002-1.035); SQUAMOUS EPITHELIAL CELL UR AU 0 /HPF (0-6); WBC, URINE AUTO 0 /HPF (0-3)
== END ==
LOC: M LABSMT 09:07
PROVIDERS: ATTEND Urology
DX: Z87.438 Personal history of other diseases of male genital organs (principal)

== ENCOUNTER → 2023-02-25 | Outpatient (CLI) | payer MEDICARE ==
[2023-02-25 13:08] LABS: BASO # 0.1 10^3/uL (0.0-0.2); BASO % 0.4 % (0.0-1.0); EOS # 0.1 10^3/uL (0.0-0.5); HEMATOCRIT 52.6 % (42.0-52.0); HEMOGLOBIN 17.5 g/dl (13.5-17.5); LYMPH # 1.5 10^3/uL (1.5-5.0); LYMPH % 12.1 % (24.0-44.0); MEAN CORPUSCULAR HEMOGLOBIN 30.3 pg (27.0-33.0); MEAN CORPUSCULAR HGB CONC 33.3 g/dl (32.0-36.5); MEAN CORPUSCULAR VOLUME 91.2 fl (80.0-96.0); MONO # 0.8 10^3/uL (0.0-0.8); MONO % 6.5 % (2.0-8.0); NEUTROPHILS % 79.5 % (36.0-66.0); PLATELET COUNT, AUTOMATED 264 10^3/uL (150-450); RED BLOOD COUNT 5.77 10^6/uL (4.30-6.10); WHITE BLOOD COUNT 12.6 10^3/uL (4.0-10.0)
[2023-02-25 13:26] LABS: ERYTHROCYTE SEDIMENTATION RATE 12 mm/hr (0-20)
== END ==
LOC: M LAB 11:52
PROVIDERS: ATTEND Optometrist
DX: M31.6 Other giant cell arteritis (principal)

== ENCOUNTER → 2023-05-17 | Outpatient (CLI) | payer MEDICARE ==
[~2023-05-17] MED LIST changes: -CEFD300C41 PO; +CEFD300C42 PO
[2023-05-17 14:05] LABS: BASO # 0.1 10^3/uL (0.0-0.2); BASO % 0.6 % (0.0-1.0); EOS # 0.6 10^3/uL (0.0-0.5); EOS % 4.4 % (0.0-3.0); HEMATOCRIT 52.1 % (42.0-52.0); HEMOGLOBIN 16.8 g/dl (13.5-17.5); LYMPH # 2.2 10^3/uL (1.5-5.0); LYMPH % 16.8 % (24.0-44.0); MEAN CORPUSCULAR HEMOGLOBIN 30.9 pg (27.0-33.0); MEAN CORPUSCULAR HGB CONC 32.2 g/dl (32.0-36.5); MEAN CORPUSCULAR VOLUME 95.9 fl (80.0-96.0); MONO % 7.6 % (2.0-8.0); NEUTROPHILS % 70.2 % (36.0-66.0); PLATELET COUNT, AUTOMATED 267 10^3/uL (150-450); RED BLOOD COUNT 5.43 10^6/uL (4.30-6.10); WHITE BLOOD COUNT 12.8 10^3/uL (4.0-10.0)
[2023-05-17 14:15] LABS: HEMOGLOBIN A1c 5.9 % (4.0-6.0)
[2023-05-17 14:23] LABS: ALBUMIN 3.8 G/DL (3.2-5.2); ALKALINE PHOSPHATASE 90 U/L (46-116); ALT/SGPT 26 U/L (7.0-40); AST/SGOT 21 U/L (<34); BILIRUBIN,TOTAL 1.1 MG/DL (0.3-1.2); BLOOD UREA NITROGEN 24 MG/DL (9-23); CALCIUM LEVEL 9.5 MG/DL (8.3-10.6); CARBON DIOXIDE LEVEL 26 MMOL/L (20-31); CHLORIDE LEVEL 107 MMOL/L (98-107); CHOLESTEROL LEVEL 108 MG/DL (<200); CHOLESTEROL RISK RATIO 2.43 (<5); CREATININE FOR GFR 1.15 MG/DL (0.70-1.30); GLOMERULAR FILTRATION RATE > 60.0 (>35); GLUCOSE, FASTING 130 MG/DL (74-106); HDL CHOLESTEROL 44.4 MG/DL (>40); LDL CHOLESTEROL 47.6 MG/DL (<100); MAGNESIUM LEVEL 1.8 MG/DL (1.8-2.4); NON-HDL-C 63.6 MG/DL; POTASSIUM SERUM 5.2 MMOL/L (3.5-5.1); SODIUM LEVEL 141 MMOL/L (136-145); TOTAL PROTEIN 6.6 G/DL (5.7-8.2); TRIGLYCERIDES LEVEL 80 MG/DL (<150)
== END ==
LOC: M PLALAB 11:14
PROVIDERS: ATTEND Nurse Practitioner Family
DX: E11.21 Type 2 diabetes mellitus with diabetic nephropathy (principal); E78.2 Mixed hyperlipidemia; I10 Essential (primary) hypertension

== ENCOUNTER → 2023-10-04 | Outpatient (CLI) | payer MEDICARE ==
[~2023-10-04] MED LIST changes: +CEFD1CAP9 PO; -CEFD300C42 PO
[2023-10-04 12:32] LABS: BASO # 0.1 10^3/uL (0.0-0.2); BASO % 0.5 % (0.0-1.0); EOS # 0.5 10^3/uL (0.0-0.5); EOS % 4.3 % (0.0-3.0); HEMATOCRIT 55.2 % (42.0-52.0); HEMOGLOBIN 17.7 g/dl (13.5-17.5); LYMPH # 2.2 10^3/uL (1.5-5.0); LYMPH % 17.8 % (24.0-44.0); MEAN CORPUSCULAR HEMOGLOBIN 30.2 pg (27.0-33.0); MEAN CORPUSCULAR HGB CONC 32.1 g/dl (32.0-36.5); MONO # 0.9 10^3/uL (0.0-0.8); MONO % 7.3 % (2.0-8.0); NEUTROPHILS # 8.5 10^3/uL (1.5-8.5); NEUTROPHILS % 69.6 % (36.0-66.0); PLATELET COUNT, AUTOMATED 274 10^3/uL (150-450); RED BLOOD COUNT 5.87 10^6/uL (4.30-6.10); WHITE BLOOD COUNT 12.2 10^3/uL (4.0-10.0)
[2023-10-04 12:56] LABS: ALBUMIN 4.3 G/DL (3.2-5.2); ALKALINE PHOSPHATASE 98 U/L (46-116); ALT/SGPT 17 U/L (7.0-40); AST/SGOT 12 U/L (<34); BILIRUBIN,TOTAL 0.8 MG/DL (0.3-1.2); BLOOD UREA NITROGEN 16 MG/DL (9-23); CALCIUM LEVEL 9.5 MG/DL (8.3-10.6); CARBON DIOXIDE LEVEL 28 MMOL/L (20-31); CHLORIDE LEVEL 105 MMOL/L (98-107); CREATININE FOR GFR 1.05 MG/DL (0.70-1.30); FOLATE 11.71 NG/ML (>5.4); FREE T4 1.34 NG/DL (0.89-1.76); GLOMERULAR FILTRATION RATE > 60.0 (>35); GLUCOSE, FASTING 146 MG/DL (74-106); SODIUM LEVEL 140 MMOL/L (136-145); THYROID STIMULATING HORMONE 3.759 uIU/ML (0.55-4.78); TOTAL 25(OH) VITAMIN D 14.8 NG/ML (20.0-100.0); VITAMIN B12 LEVEL 396 PG/ML (211-911)
[2023-10-11 23:07] LABS: ACETYLCHOLINE RCPTOR BLOCK AB 34 % (0-25)
== END ==
LOC: M PLAIMG 09:09
PROVIDERS: ATTEND Nurse Practitioner Family
DX: R06.02 Shortness of breath (principal); M62.81 Muscle weakness (generalized); R53.83 Other fatigue; J84.89 Other specified interstitial pulmonary diseases; Z79.899 Other long term (current) drug therapy

== ENCOUNTER → 2023-11-17 | Outpatient (CLI) | payer MEDICARE ==
[2023-11-17 14:00] LABS: HEMOGLOBIN A1c 6.4 % (4.0-6.0)
[2023-11-17 14:10] LABS: FREE T4 1.11 NG/DL (0.89-1.76)
[2023-11-17 14:11] LABS: THYROID STIMULATING HORMONE 4.59 uIU/ML (0.55-4.78)
[2023-11-17 14:13] LABS: CHOLESTEROL RISK RATIO 3.28 (<5); HDL CHOLESTEROL 44.2 MG/DL (>40); LDL CHOLESTEROL 80.6 MG/DL (<100); NON-HDL-C 100.8 MG/DL
[2023-11-17 14:14] LABS: CREATININE, URINE 101.8 MG/DL
[2023-11-17 14:15] LABS: MAU/CREAT RATIO 86.4 MCG/MG (0.0-30.0)
== END ==
LOC: M PLALAB 11:09
PROVIDERS: ATTEND Nurse Practitioner Family
DX: E78.2 Mixed hyperlipidemia (principal); E11.21 Type 2 diabetes mellitus with diabetic nephropathy

== ENCOUNTER → 2024-02-08 | Outpatient (REF) | payer MEDICARE ==
[2024-02-08 13:39] LABS: APPEARANCE, URINE CLEAR (CLEAR); BACTERIA, URINE AUTO NEGATIVE (NEGATIVE); BILIRUBIN, URINE AUTO NEGATIVE (NEGATIVE); BLOOD, URINE BLOOD NEGATIVE (NEGATIVE); COLOR, URINE YELLOW (YELLOW); GLUCOSE, URINE (UA) AUTO 3+ mg/dL (NEGATIVE); KETONE, URINE AUTO NEGATIVE (NEGATIVE); LEUKOCYTE ESTERASE, URINE AUTO NEGATIVE (NEGATIVE); NITRITE, URINE AUTO NEGATIVE (NEGATIVE); PROTEIN, URINE AUTO 1+ mg/dL (NEGATIVE); RBC, URINE AUTO 0 /HPF (0-3); SPECIFIC GRAVITY URINE AUTO 1.027 (1.002-1.035); SQUAMOUS EPITHELIAL CELL UR AU 0 /HPF (0-6); WBC, URINE AUTO 0 /HPF (0-3)
== END ==
LOC: M SMT 12:49
PROVIDERS: ATTEND Urology
DX: R35.0 Frequency of micturition (principal)

== ENCOUNTER 2024-02-16 08:37 | Outpatient (CLI) | payer MEDICARE ==
[~2024-02-16] VITALS: Ht 167.6 cm; Wt 84.0 kg
[~2024-02-16 08:37] MED LIST changes: +ALBUTEROL SULFATE 2.5MG/0.5ML INH NEB SOLN INH PRN; +EPINEPHrine INJ 1 MG/ML 1ML AMP IM PRN; +NS 1,000 ML IV SCH; +diphenhydrAMINE 50MG/ML VIAL IV PRN; +methylPREDNISolone 125MG 2ML VIAL IV PRN
[2024-02-16] MEDS: LORATADINE 10 MG TAB PO ONE (09:03)
[2024-02-16] MEDS: ACETAMINOPHEN 650MG PO PRIOR TO INFUSION PO ONE (09:03)
[2024-02-16 09:05] VITALS: BP 170/75; O2SAT 96
[2024-02-16] MEDS: IMMUNE GLOBULIN 10% 20 GM in IV 1 EA IV ONE (09:40)
[2024-02-16] MEDS: IMMUNE GLOBULIN 10% 10 GM in IV 1 EA IV ONE (09:43)
[2024-02-16] MEDS: IMMUNE GLOBULIN 10% 5 GM in IV 1 EA IV ONE (09:44)
[2024-02-16 10:15] VITALS: BP 127/62; O2SAT 97
[2024-02-16 10:45] VITALS: BP 129/65; O2SAT 96
[2024-02-16 11:15] VITALS: BP 130/71; O2SAT 98
[2024-02-16 12:15] VITALS: BP 130/70; O2SAT 97
== END 2024-02-16 12:40 | disposition home or self-care (01) ==
LOC: M INFU 08:37
PROVIDERS: ATTEND Registered Nurse
DX: G70.00 Myasthenia gravis without (acute) exacerbation (principal)
CPT/HCPCS: 96365; 96366; J1459

== ENCOUNTER 2024-02-17 08:06 | Outpatient (CLI) | payer MEDICARE ==
[~2024-02-17] VITALS: Ht 167.6 cm; Wt 84.0 kg
[~2024-02-17 08:06] MED LIST changes: -ALBUTEROL SULFATE 2.5MG/0.5ML INH NEB SOLN INH PRN; -EPINEPHrine INJ 1 MG/ML 1ML AMP IM PRN; -diphenhydrAMINE 50MG/ML VIAL IV PRN; -methylPREDNISolone 125MG 2ML VIAL IV PRN
[2024-02-17 08:30] VITALS: BP 134/65; O2SAT 98
[2024-02-17] MEDS: ACETAMINOPHEN 650MG PO PRIOR TO INFUSION PO ONE (08:35)
[2024-02-17] MEDS: LORATADINE 10 MG TAB PO ONE (08:35)
[2024-02-17] MEDS: IMMUNE GLOBULIN 10% 20 GM in IV 1 EA IV ONE (08:45)
[2024-02-17] MEDS: IMMUNE GLOBULIN 10% 10 GM in IV 1 EA IV ONE (08:46)
[2024-02-17] MEDS: IMMUNE GLOBULIN 10% 5 GM in IV 1 EA IV ONE (08:47)
[2024-02-17 09:00] VITALS: BP 143/81; O2SAT 96
[2024-02-17 09:30] VITALS: BP 159/72; O2SAT 96
[2024-02-17 10:30] VITALS: BP 166/78; O2SAT 96
[2024-02-17 11:21] VITALS: BP 144/82; O2SAT 96
== END 2024-02-17 11:25 ==
LOC: M INFU 08:06
PROVIDERS: ATTEND Registered Nurse
DX: G70.00 Myasthenia gravis without (acute) exacerbation (principal)
CPT/HCPCS: 96365; 96366; J1459

== ENCOUNTER 2024-03-15 08:30 | Outpatient (CLI) | payer MEDICARE ==
[~2024-03-15] VITALS: Ht 167.6 cm; Wt 84.0 kg
[2024-03-15 08:30] VITALS: BP 131/69; O2SAT 96
[~2024-03-15 08:30] MED LIST changes: +ALBUTEROL SULFATE 2.5MG/0.5ML INH NEB SOLN INH PRN; +EPINEPHrine INJ 1 MG/ML 1ML AMP IM PRN; +diphenhydrAMINE 50MG/ML VIAL IV PRN; +methylPREDNISolone 125MG 2ML VIAL IV PRN
[2024-03-15] MEDS: ACETAMINOPHEN 650MG PO PRIOR TO INFUSION PO ONE (08:40)
[2024-03-15] MEDS: LORATADINE 10 MG TAB PO ONE (08:40)
[2024-03-15] MEDS: IMMUNE GLOBULIN 10% 20 GM in IV 1 EA IV ONE (08:54)
[2024-03-15] MEDS: IMMUNE GLOBULIN 10% 10 GM in IV 1 EA IV ONE (08:58)
[2024-03-15] MEDS: IMMUNE GLOBULIN 10% 5 GM in IV 1 EA IV ONE (08:59)
[2024-03-15 09:30] VITALS: BP 145/71; O2SAT 98
[2024-03-15 10:00] VITALS: BP 140/70; O2SAT 95
[2024-03-15 10:30] VITALS: BP 153/72; O2SAT 96
[2024-03-15 12:00] VITALS: BP 150/84; O2SAT 96
== END 2024-03-15 12:10 ==
LOC: M INFU 08:30
PROVIDERS: ATTEND Registered Nurse
DX: G70.00 Myasthenia gravis without (acute) exacerbation (principal)
CPT/HCPCS: 96365; 96366; J1459

== ENCOUNTER 2024-03-16 09:30 | Outpatient (CLI) | payer MEDICARE ==
[~2024-03-16] VITALS: Ht 165.1 cm; Wt 84.0 kg
[2024-03-16 09:35] VITALS: BP 138/67; O2SAT 97
[2024-03-16] MEDS: LORATADINE 10 MG TAB PO ONE (10:01)
[2024-03-16] MEDS: ACETAMINOPHEN 650MG PO PRIOR TO INFUSION PO ONE (10:01)
[2024-03-16] MEDS: IMMUNE GLOBULIN 10% 5 GM in IV 1 EA IV ONE (10:18)
[2024-03-16] MEDS: IMMUNE GLOBULIN 10% 10 GM in IV 1 EA IV ONE (10:19)
[2024-03-16] MEDS: IMMUNE GLOBULIN 10% 20 GM in IV 1 EA IV ONE (10:20)
[2024-03-16 11:00] VITALS: BP 129/70; O2SAT 96
[2024-03-16 11:30] VITALS: BP 130/76; O2SAT 97
[2024-03-16 12:00] VITALS: BP 141/87; O2SAT 98
[2024-03-16 13:30] VITALS: BP 165/84; O2SAT 97
== END 2024-03-16 13:30 ==
LOC: M INFU 09:30
PROVIDERS: ATTEND Registered Nurse
DX: G70.00 Myasthenia gravis without (acute) exacerbation (principal)
CPT/HCPCS: 96365; 96366; J1459

== ENCOUNTER → 2024-03-21 | Outpatient (CLI) | payer MEDICARE ==
[~2024-03-21] MED LIST changes: -ALBUTEROL SULFATE 2.5MG/0.5ML INH NEB SOLN INH PRN; -EPINEPHrine INJ 1 MG/ML 1ML AMP IM PRN; -NS 1,000 ML IV SCH; -diphenhydrAMINE 50MG/ML VIAL IV PRN; -methylPREDNISolone 125MG 2ML VIAL IV PRN
[2024-03-21 15:07] LABS: BASO # 0.1 10^3/uL (0.0-0.2); BASO % 0.6 % (0.0-1.0); EOS # 0.4 10^3/uL (0.0-0.5); EOS % 4.3 % (0.0-3.0); HEMATOCRIT 52.3 % (42.0-52.0); HEMOGLOBIN 16.6 g/dl (13.5-17.5); LYMPH # 1.9 10^3/uL (1.5-5.0); LYMPH % 22.8 % (24.0-44.0); MEAN CORPUSCULAR HEMOGLOBIN 28.4 pg (27.0-33.0); MEAN CORPUSCULAR HGB CONC 31.7 g/dl (32.0-36.5); MEAN CORPUSCULAR VOLUME 89.4 fl (80.0-96.0); MONO # 0.7 10^3/uL (0.0-0.8); MONO % 8.6 % (2.0-8.0); NEUTROPHILS # 5.3 10^3/uL (1.5-8.5); NEUTROPHILS % 63.3 % (36.0-66.0); PLATELET COUNT, AUTOMATED 244 10^3/uL (150-450); RED BLOOD COUNT 5.85 10^6/uL (4.30-6.10); WHITE BLOOD COUNT 8.4 10^3/uL (4.0-10.0)
[2024-03-21 15:08] LABS: ALBUMIN 3.4 G/DL (3.2-5.2); ALKALINE PHOSPHATASE 96 U/L (46-116); ALT/SGPT 18 U/L (7.0-40); AST/SGOT 23 U/L (<34); BILIRUBIN,TOTAL 0.5 MG/DL (0.3-1.2); BLOOD UREA NITROGEN 16 MG/DL (9-23); CALCIUM LEVEL 9.6 MG/DL (8.3-10.6); CARBON DIOXIDE LEVEL 27 MMOL/L (20-31); CHLORIDE LEVEL 108 MMOL/L (98-107); CHOLESTEROL LEVEL 190 MG/DL (<200); CHOLESTEROL RISK RATIO 3.79 (<5); CREATININE FOR GFR 1.11 MG/DL (0.70-1.30); GLOMERULAR FILTRATION RATE > 60.0 (>35); GLUCOSE, FASTING 133 MG/DL (74-106); HDL CHOLESTEROL 50.1 MG/DL (>40); LDL CHOLESTEROL 119.3 MG/DL (<100); MAGNESIUM LEVEL 1.8 MG/DL (1.8-2.4); NON-HDL-C 139.9 MG/DL; POTASSIUM SERUM 4.9 MMOL/L (3.5-5.1); SODIUM LEVEL 140 MMOL/L (136-145); TOTAL PROTEIN 7.3 G/DL (5.7-8.2); TRIGLYCERIDES LEVEL 103 MG/DL (<150)
== END ==
LOC: M PLALAB 12:54
PROVIDERS: ATTEND Nurse Practitioner Family
DX: E78.2 Mixed hyperlipidemia (principal); I10 Essential (primary) hypertension

== ENCOUNTER 2024-05-10 08:15 | Outpatient (CLI) | payer MEDICARE ==
[~2024-05-10] VITALS: Ht 167.6 cm; Wt 87.7 kg
[2024-05-10 08:15] VITALS: BP_SYST 138; BP_SYST 172; BP_DIAS 65; BP_DIAS 78; O2SAT 96; O2SAT 97
[2024-05-10] MEDS: ACETAMINOPHEN 650MG PO PRIOR TO INFUSION PO ONE (08:26)
[2024-05-10] MEDS: LORATADINE 10 MG TAB PO ONE (08:26)
[2024-05-10] MEDS ORDERED: ALBUTEROL SULFATE 2.5MG/0.5ML INH NEB SOLN INH PRN (08:30)
[2024-05-10] MEDS ORDERED: NS 1,000 ML IV SCH (08:30)
[2024-05-10] MEDS ORDERED: diphenhydrAMINE 50MG/ML VIAL IV PRN (08:30)
[2024-05-10] MEDS ORDERED: methylPREDNISolone 125MG 2ML VIAL IV PRN (08:30)
[2024-05-10] MEDS ORDERED: EPINEPHrine INJ 1 MG/ML 1ML AMP IM PRN (08:30)
[2024-05-10] MEDS: IMMUNE GLOBULIN 10% 20 GM in IV 1 EA IV ONE (09:04)
[2024-05-10] MEDS: IMMUNE GLOBULIN 10% 10 GM in IV 1 EA IV ONE (09:05)
[2024-05-10] MEDS: IMMUNE GLOBULIN 10% 5 GM in IV 1 EA IV ONE (09:06)
[2024-05-10 10:00] VITALS: BP 143/65; O2SAT 97
[2024-05-10 11:00] VITALS: BP 150/69; O2SAT 98
[2024-05-10 11:50] VITALS: BP 172/82; O2SAT 95
== END 2024-05-10 11:45 ==
LOC: M INFU 08:15
PROVIDERS: ATTEND Registered Nurse
DX: G70.00 Myasthenia gravis without (acute) exacerbation (principal)
CPT/HCPCS: 96365; 96366; J1459

== ENCOUNTER 2024-05-11 08:40 | Outpatient (CLI) | payer MEDICARE ==
[2024-05-11 08:50] VITALS: BP 145/67; O2SAT 98
[2024-05-11] MEDS: ACETAMINOPHEN 650MG PO PRIOR TO INFUSION PO ONE (08:50)
[2024-05-11] MEDS: LORATADINE 10 MG TAB PO ONE (08:50)
[2024-05-11] MEDS: IMMUNE GLOBULIN 10% 5 GM in IV 1 EA IV ONE (09:00)
[2024-05-11] MEDS ORDERED: NS 1,000 ML IV SCH (09:00)
[2024-05-11] MEDS ORDERED: EPINEPHrine INJ 1 MG/ML 1ML AMP IM PRN (09:00)
[2024-05-11] MEDS ORDERED: ALBUTEROL SULFATE 2.5MG/0.5ML INH NEB SOLN INH PRN (09:00)
[2024-05-11] MEDS ORDERED: methylPREDNISolone 125MG 2ML VIAL IV PRN (09:00)
[2024-05-11] MEDS ORDERED: diphenhydrAMINE 50MG/ML VIAL IV PRN (09:00)
[2024-05-11] MEDS: IMMUNE GLOBULIN 10% 10 GM in IV 1 EA IV ONE (09:01)
[2024-05-11] MEDS: IMMUNE GLOBULIN 10% 20 GM in IV 1 EA IV ONE (09:02)
[2024-05-11 09:30] VITALS: BP 136/66; O2SAT 97
[2024-05-11 10:00] VITALS: BP 132/64; O2SAT 97
[2024-05-11 10:30] VITALS: BP 145/69; O2SAT 97
[2024-05-11 11:50] VITALS: BP 165/75; O2SAT 97
== END 2024-05-11 11:50 ==
LOC: M INFU 08:40
PROVIDERS: ATTEND Registered Nurse
DX: G70.00 Myasthenia gravis without (acute) exacerbation (principal)
CPT/HCPCS: 96365; 96366; J1459

== ENCOUNTER 2024-06-07 08:10 | Outpatient (CLI) | payer MEDICARE ==
[~2024-06-07] VITALS: Ht 167.6 cm; Wt 84.0 kg
[2024-06-07 08:10] VITALS: BP 112/59; O2SAT 96
[~2024-06-07 08:10] MED LIST changes: +ALBUTEROL SULFATE 2.5MG/0.5ML INH NEB SOLN INH PRN; +EPINEPHrine INJ 1 MG/ML 1ML AMP IM PRN; +IMMUNE GLOBULIN 10% 5 GM in IV 1 EA IV ONE; +NS 1,000 ML IV SCH; +diphenhydrAMINE 50MG/ML VIAL IV PRN; +methylPREDNISolone 125MG 2ML VIAL IV PRN
[2024-06-07] MEDS: LORATADINE 10 MG TAB PO ONE (08:24)
[2024-06-07] MEDS: ACETAMINOPHEN 650MG PO PRIOR TO INFUSION PO ONE (08:24)
[2024-06-07] MEDS: IMMUNE GLOBULIN 10% 20 GM in IV 1 EA IV ONE (08:59)
[2024-06-07 09:30] VITALS: BP 106/58; O2SAT 96
[2024-06-07 10:00] VITALS: BP 113/59; O2SAT 97
[2024-06-07 10:30] VITALS: BP 110/59; O2SAT 97
[2024-06-07] MEDS: IMMUNE GLOBULIN 10% 10 GM in IV 1 EA IV ONE (11:00)
[2024-06-07] MEDS: IMMUNE GLOBULIN 10% 5 GM in IV 1 EA IV ONE (11:34)
[2024-06-07 11:45] VITALS: BP 123/73; O2SAT 97; O2SAT 98
== END 2024-06-07 11:55 ==
LOC: M INFU 08:10
PROVIDERS: ATTEND Registered Nurse
DX: G70.00 Myasthenia gravis without (acute) exacerbation (principal)
CPT/HCPCS: 96365; 96366; J1459

== ENCOUNTER 2024-06-08 08:20 | Outpatient (CLI) | payer MEDICARE ==
[~2024-06-08] VITALS: Ht 167.6 cm; Wt 84.1 kg
[~2024-06-08 08:20] MED LIST changes: -ALBUTEROL SULFATE 2.5MG/0.5ML INH NEB SOLN INH PRN; -IMMUNE GLOBULIN 10% 5 GM in IV 1 EA IV ONE
[2024-06-08] MEDS: ACETAMINOPHEN 650MG PO PRIOR TO INFUSION PO ONE (08:33)
[2024-06-08] MEDS: IMMUNE GLOBULIN 10% 20 GM in IV 1 EA IV ONE (08:34)
[2024-06-08] MEDS: IMMUNE GLOBULIN 10% 5 GM in IV 1 EA IV ONE (08:35)
[2024-06-08] MEDS: IMMUNE GLOBULIN 10% 10 GM in IV 1 EA IV ONE (08:36)
[2024-06-08 08:49] VITALS: BP 122/68; O2SAT 96
[2024-06-08 09:15] VITALS: BP 129/71; O2SAT 97
[2024-06-08 09:45] VITALS: BP 131/79; O2SAT 99
[2024-06-08 10:15] VITALS: BP 117/58; O2SAT 96
[2024-06-08 11:15] VITALS: BP 119/64; O2SAT 97
[2024-06-08 11:45] VITALS: BP 160/79; O2SAT 98
== END 2024-06-08 12:55 ==
LOC: M INFU 08:20
PROVIDERS: ATTEND Registered Nurse
DX: G70.00 Myasthenia gravis without (acute) exacerbation (principal)
CPT/HCPCS: 96365; 96366; J1459

== ENCOUNTER 2024-06-16 19:58 | Observation (INO) | payer MEDICARE ==
[~2024-06-16] VITALS: Ht 167.6 cm; Wt 84.3 kg
[~2024-06-16 19:58] MED LIST changes: -EPINEPHrine INJ 1 MG/ML 1ML AMP IM PRN; -NS 1,000 ML IV SCH; -diphenhydrAMINE 50MG/ML VIAL IV PRN; -methylPREDNISolone 125MG 2ML VIAL IV PRN
[2024-06-16 21:04] LABS: BASO % 0.3 % (0.0-1.0); EOS % 0.3 % (0.0-3.0); HEMATOCRIT 49.7 % (42.0-52.0); HEMOGLOBIN 16.1 g/dl (13.5-17.5); LYMPH % 7.5 % (24.0-44.0); MEAN CORPUSCULAR HEMOGLOBIN 29.2 pg (27.0-33.0); MEAN CORPUSCULAR HGB CONC 32.4 g/dl (32.0-36.5); MEAN CORPUSCULAR VOLUME 90.2 fl (80.0-96.0); MONO # 0.7 10^3/uL (0.0-0.8); MONO % 5.3 % (2.0-8.0); NEUTROPHILS # 11.5 10^3/uL (1.5-8.5); NEUTROPHILS % 86.1 % (36.0-66.0); PLATELET COUNT, AUTOMATED 251 10^3/uL (150-450); RED BLOOD COUNT 5.51 10^6/uL (4.30-6.10); WHITE BLOOD COUNT 13.3 10^3/uL (4.0-10.0)
[2024-06-16] MEDS ORDERED: ISOVUE-370 76% 100ML VIAL As Ordered ONE (21:07)
[2024-06-16 21:19] LABS: PARTIAL THROMBOPLASTIN TIME 21.6 SECONDS (24.8-34.2); PROTHROMBIN TIME 13.5 SECONDS (12.5-14.5)
[2024-06-16 21:29] LABS: CK-MB VALUE MASS 1.3 NG/ML (<3.6)
[2024-06-16 21:30] LABS: CALCIUM LEVEL 9.9 MG/DL (8.3-10.6); CREATININE FOR GFR 1.24 MG/DL (0.70-1.30); GLOMERULAR FILTRATION RATE 59.3 (>35); MB/CK RELATIVE INDEX 1.73 (< OR =4); POTASSIUM SERUM 4.9 MMOL/L (3.5-5.1)
[2024-06-16] MEDS: cefTRIAXone SOD 1 GM in DEXTROSE 5% (D5W) ADV/MINI-BAG 50 ML IV ONE (22:49)
[2024-06-16] MEDS: ASPIRIN 325 MG TAB PO ONE (23:01)
[2024-06-16] MEDS ORDERED: LISI10TA22 PO (23:03)
[2024-06-16] MEDS ORDERED: MYRB50TA PO (23:03)
[2024-06-16] MEDS ORDERED: PYRI60TA2 PO (23:03)
[2024-06-16] MEDS ORDERED: D-50CAP PO (23:03)
[2024-06-16] MEDS ORDERED: JARD1TAB PO (23:03)
[2024-06-16] MEDS ORDERED: CYAN-1 PO (23:03)
[2024-06-16] MEDS ORDERED: TAMS1CAP17 PO (23:03)
[2024-06-16] MEDS ORDERED: EZET10TA21 PO (23:03)
[2024-06-16] MEDS ORDERED: HOME MED LIST COMPLETE! XX SCH (23:05)
[2024-06-16] MEDS ORDERED: ACETAMINOPHEN 325 MG TAB PO PRN (23:50)
[2024-06-17] MEDS ORDERED: GLUCOSE 4 GM CHEW PO PRN (00:05)
[2024-06-17] MEDS ORDERED: GLUCAGON INJ 1MG VIAL SC PRN (00:05)
[2024-06-17] MEDS ORDERED: DEXTROSE 50% 50ML SYRINGE IV PRN (00:05)
[2024-06-17] MEDS: CLOPIDOGREL 75 MG TAB PO STA (00:20)
[2024-06-17] MEDS: ATORVASTATIN 20 MG TAB PO STA (00:20)
[2024-06-17] MEDS ORDERED: PILL CUTTER 1 EACH XX PRN (00:25)
[2024-06-17] MEDS: PYRIDOSTIGMINE 60MG TABLET PO SCH (00:25)
[2024-06-17 01:51] LABS: ALBUMIN 3.4 G/DL (3.2-5.2); BILIRUBIN,DIRECT 0.1 MG/DL (<0.4); BILIRUBIN,TOTAL 0.4 MG/DL (0.3-1.2); TOTAL PROTEIN 7.2 G/DL (5.7-8.2)
[2024-06-17 06:10] VITALS: BP 146/69; TEMP 97.4; O2SAT 96
[2024-06-17 06:57] LABS: BASO # 0.1 10^3/uL (0.0-0.2); BASO % 0.6 % (0.0-1.0); EOS # 0.1 10^3/uL (0.0-0.5); EOS % 1.1 % (0.0-3.0); HEMATOCRIT 46.3 % (42.0-52.0); HEMOGLOBIN 15.1 g/dl (13.5-17.5); LYMPH # 2.3 10^3/uL (1.5-5.0); LYMPH % 20.9 % (24.0-44.0); MEAN CORPUSCULAR HEMOGLOBIN 29.1 pg (27.0-33.0); MEAN CORPUSCULAR HGB CONC 32.6 g/dl (32.0-36.5); MEAN CORPUSCULAR VOLUME 89.2 fl (80.0-96.0); MONO # 1.1 10^3/uL (0.0-0.8); MONO % 10.3 % (2.0-8.0); NEUTROPHILS # 7.3 10^3/uL (1.5-8.5); NEUTROPHILS % 66.7 % (36.0-66.0); PLATELET COUNT, AUTOMATED 247 10^3/uL (150-450); RED BLOOD COUNT 5.19 10^6/uL (4.30-6.10); WHITE BLOOD COUNT 10.9 10^3/uL (4.0-10.0)
[2024-06-17 07:25] LABS: CALCIUM LEVEL 9.8 MG/DL (8.3-10.6); CHOLESTEROL RISK RATIO 4.02 (<5); CREATININE FOR GFR 1.27 MG/DL (0.70-1.30); GLOMERULAR FILTRATION RATE 57.7 (>35); HDL CHOLESTEROL 42.2 MG/DL (>40); LDL CHOLESTEROL 108.2 MG/DL (<100); MAGNESIUM LEVEL 1.8 MG/DL (1.8-2.4); NON-HDL-C 127.8 MG/DL; POTASSIUM SERUM 4.7 MMOL/L (3.5-5.1)
[2024-06-17 07:27] LABS: FREE T4 1.27 NG/DL (0.89-1.76); THYROID STIMULATING HORMONE 2.023 uIU/ML (0.55-4.78)
[2024-06-17] MEDS: INSULIN LISPRO (NovoLOG) PER UNIT SC SCH ×2 (07:30→20:38)
[2024-06-17 07:45] LABS: HEMOGLOBIN A1c 6.4 % (4.0-6.0)
[2024-06-17 08:00] VITALS: BP 166/70; TEMP 98; O2SAT 96
[2024-06-17] MEDS ORDERED: ATORVASTATIN 20 MG TAB PO SCH (09:00)
[2024-06-17] MEDS: cefTRIAXone SOD 1 GM in DEXTROSE 5% (D5W) ADV/MINI-BAG 50 ML IV SCH (09:41)
[2024-06-17] MEDS: CLOPIDOGREL 75 MG TAB PO SCH (09:41)
[2024-06-17] MEDS: EZETIMIBE 10MG TABLET (ZETIA) PO SCH (09:41)
[2024-06-17] MEDS: ASPIRIN 81MG ENTERIC TABLET PO SCH (09:42)
[2024-06-17] MEDS: DAPAGLIFLOZIN PROPANEDIOL 10MG TABLET (FARXIGA) PO SCH (09:42)
[2024-06-17] MEDS: ATORVASTATIN 20 MG TAB PO SCH (09:45)
[2024-06-17 16:00] VITALS: BP 157/74; TEMP 98; O2SAT 97
[2024-06-17 19:48] VITALS: BP 130/60; TEMP 97.3; O2SAT 94
[2024-06-18 04:15] VITALS: BP 140/80; TEMP 97.5; O2SAT 95
[2024-06-18 04:49] LABS: BASO # 0.1 10^3/uL (0.0-0.2); BASO % 0.7 % (0.0-1.0); EOS # 0.3 10^3/uL (0.0-0.5); HEMATOCRIT 52.5 % (42.0-52.0); HEMOGLOBIN 16.9 g/dl (13.5-17.5); LYMPH # 1.9 10^3/uL (1.5-5.0); LYMPH % 22.6 % (24.0-44.0); MEAN CORPUSCULAR HEMOGLOBIN 28.8 pg (27.0-33.0); MEAN CORPUSCULAR HGB CONC 32.2 g/dl (32.0-36.5); MEAN CORPUSCULAR VOLUME 89.4 fl (80.0-96.0); MONO % 11.4 % (2.0-8.0); NEUTROPHILS # 5.2 10^3/uL (1.5-8.5); NEUTROPHILS % 61.1 % (36.0-66.0); PLATELET COUNT, AUTOMATED 257 10^3/uL (150-450); RED BLOOD COUNT 5.87 10^6/uL (4.30-6.10); WHITE BLOOD COUNT 8.5 10^3/uL (4.0-10.0)
[2024-06-18 05:11] LABS: BLOOD UREA NITROGEN 17 MG/DL (9-23); CALCIUM LEVEL 9.8 MG/DL (8.3-10.6); CARBON DIOXIDE LEVEL 27 MMOL/L (20-31); CHLORIDE LEVEL 109 MMOL/L (98-107); CREATININE FOR GFR 1.11 MG/DL (0.70-1.30); GLOMERULAR FILTRATION RATE > 60.0 (>35); GLUCOSE, FASTING 115 MG/DL (74-106); MAGNESIUM LEVEL 1.9 MG/DL (1.8-2.4); POTASSIUM SERUM 4.4 MMOL/L (3.5-5.1); SODIUM LEVEL 141 MMOL/L (136-145)
[2024-06-18 08:00] VITALS: BP 166/75; TEMP 97.3; O2SAT 96
[2024-06-18] MEDS: TAMSULOSIN 0.4 MG CAP PO SCH (09:37)
[2024-06-18] MEDS ORDERED: CLOP75TA2 PO (10:30)
[2024-06-18] MEDS ORDERED: ATOR1TAB21 PO (10:30)
[2024-06-18] MEDS ORDERED: ATOR40TA75 PO (10:35)
== END 2024-06-18 12:04 | disposition home or self-care (01) ==
LOC: M ED 19:58 → M ED INP 23:39 → UNDOADMOB 23:39 → M ED INP 23:40 → M ICU 06-17 06:00
PROVIDERS: ADMIT Student in an Organized Health Care Education/Training Program; ATTEND Student in an Organized Health Care Education/Training Program
DX: G45.9 Transient cerebral ischemic attack, unspecified (principal); R29.702 NIHSS score 2; R20.0 Anesthesia of skin; G31.1 Senile degeneration of brain, not elsewhere classified; I67.82 Cerebral ischemia; G70.00 Myasthenia gravis without (acute) exacerbation; R82.90 Unspecified abnormal findings in urine; I10 Essential (primary) hypertension; E11.9 Type 2 diabetes mellitus without complications; N40.1 Benign prostatic hyperplasia with lower urinary tract symptoms; I25.10 Atherosclerotic heart disease of native coronary artery without angina pectoris; I25.2 Old myocardial infarction; Z95.5 Presence of coronary angioplasty implant and graft; K21.9 Gastro-esophageal reflux disease without esophagitis; Z90.49 Acquired absence of other specified parts of digestive tract; Z96.0 Presence of urogenital implants; Z98.41 Cataract extraction status, right eye; Z98.42 Cataract extraction status, left eye; Z98.890 Other specified postprocedural states; Z87.442 Personal history of urinary calculi; Z87.891 Personal history of nicotine dependence; Z80.6 Family history of leukemia; Z82.49 Family history of ischemic heart disease and other diseases of the circulatory system; Z84.0 Family history of diseases of the skin and subcutaneous tissue; Z79.899 Other long term (current) drug therapy; Z79.84 Long term (current) use of oral hypoglycemic drugs; Z79.82 Long term (current) use of aspirin; Z79.02 Long term (current) use of antithrombotics/antiplatelets
CPT/HCPCS: 36415; 70450; 70496; 70498; 70551; 71045; 80047; 80048; 80061; 80076; 81000; 81015; 82330; 82550; 82553; 82947; 83036; 83735; 84132; 84295; 84439; 84443; 84484; 85014; 85025; 85610; 85730; 87086; 93005; 93041; 93306; 94760; 96365; 96376; 97161; 99285; G0378; J0696; J1815; Q9967

== ENCOUNTER 2024-07-05 08:05 | Outpatient (CLI) | payer MEDICARE ==
[~2024-07-05] VITALS: Ht 167.6 cm; Wt 84.0 kg
[2024-07-05 08:05] VITALS: BP 138/64; O2SAT 97
[~2024-07-05 08:05] MED LIST changes: +ALBUTEROL SULFATE 2.5MG/0.5ML INH NEB SOLN INH PRN; +ATOR1TAB21 PO; +ATOR40TA75 PO; +CLOP75TA2 PO; +CYAN-1 PO; +D-50CAP PO; +EPINEPHrine INJ 1 MG/ML 1ML AMP IM PRN; +EZET10TA21 PO; +JARD1TAB PO; +LISI10TA22 PO; +MYRB50TA PO; +PYRI60TA2 PO; +TAMS1CAP17 PO; +diphenhydrAMINE 50MG/ML VIAL IV PRN; +methylPREDNISolone 125MG 2ML VIAL IV PRN
[2024-07-05] MEDS: ACETAMINOPHEN 650 MG PO ONE (08:11)
[2024-07-05] MEDS: LORATADINE 10 MG TAB PO ONE (08:12)
[2024-07-05] MEDS: IMMUNE GLOBULIN 10% 10 GM in IV 1 EA IV ONE (08:22)
[2024-07-05] MEDS: IMMUNE GLOBULIN 10% 20 GM in IV 1 EA IV ONE (08:22)
[2024-07-05] MEDS: IMMUNE GLOBULIN 10% 5 GM in IV 1 EA IV ONE (08:23)
[2024-07-05 08:45] VITALS: BP 144/67; O2SAT 97
[2024-07-05 09:15] VITALS: BP 125/60; O2SAT 96
[2024-07-05 09:45] VITALS: BP 125/60; O2SAT 98
[2024-07-05 10:15] VITALS: BP 124/57; O2SAT 95
[2024-07-05 11:15] VITALS: BP 139/67; O2SAT 96
== END 2024-07-05 11:15 ==
LOC: M INFU 08:05
PROVIDERS: ATTEND Registered Nurse
DX: G70.00 Myasthenia gravis without (acute) exacerbation (principal)
CPT/HCPCS: 96365; 96366; J1459

== ENCOUNTER 2024-07-06 08:07 | Outpatient (CLI) | payer MEDICARE ==
[~2024-07-06] VITALS: Ht 167.6 cm; Wt 84.0 kg
[~2024-07-06 08:07] MED LIST changes: +NS 1,000 ML IV SCH
[2024-07-06 08:15] VITALS: BP 131/61; O2SAT 98
[2024-07-06] MEDS: ACETAMINOPHEN 650 MG PO ONE (08:23)
[2024-07-06] MEDS: LORATADINE 10 MG TAB PO ONE (08:23)
[2024-07-06] MEDS: IMMUNE GLOBULIN 10% 20 GM in IV 1 EA IV ONE (08:41)
[2024-07-06] MEDS: IMMUNE GLOBULIN 10% 5 GM in IV 1 EA IV ONE (08:44)
[2024-07-06] MEDS: IMMUNE GLOBULIN 10% 10 GM in IV 1 EA IV ONE (08:44)
[2024-07-06 09:15] VITALS: BP 149/79; O2SAT 97
[2024-07-06 09:45] VITALS: BP 166/79; O2SAT 96
[2024-07-06 10:15] VITALS: BP 151/81; O2SAT 97
== END 2024-07-06 11:00 ==
LOC: M INFU 08:07
PROVIDERS: ATTEND Registered Nurse
DX: G70.00 Myasthenia gravis without (acute) exacerbation (principal)
CPT/HCPCS: 96365; 96366; J1459

== ENCOUNTER → 2024-07-25 | Outpatient (CLI) | payer MEDICARE ==
[~2024-07-25] MED LIST changes: -ALBUTEROL SULFATE 2.5MG/0.5ML INH NEB SOLN INH PRN; -EPINEPHrine INJ 1 MG/ML 1ML AMP IM PRN; -NS 1,000 ML IV SCH; -diphenhydrAMINE 50MG/ML VIAL IV PRN; -methylPREDNISolone 125MG 2ML VIAL IV PRN
[2024-07-25 15:00] LABS: BASO # 0.1 10^3/uL (0.0-0.2); BASO % 0.5 % (0.0-1.0); EOS # 0.2 10^3/uL (0.0-0.5); EOS % 2.2 % (0.0-3.0); HEMATOCRIT 50.8 % (42.0-52.0); HEMOGLOBIN 16.2 g/dl (13.5-17.5); LYMPH # 1.8 10^3/uL (1.5-5.0); LYMPH % 17.4 % (24.0-44.0); MEAN CORPUSCULAR HEMOGLOBIN 29.5 pg (27.0-33.0); MEAN CORPUSCULAR HGB CONC 31.9 g/dl (32.0-36.5); MEAN CORPUSCULAR VOLUME 92.5 fl (80.0-96.0); MONO # 0.8 10^3/uL (0.0-0.8); MONO % 7.2 % (2.0-8.0); NEUTROPHILS # 7.6 10^3/uL (1.5-8.5); NEUTROPHILS % 72.5 % (36.0-66.0); PLATELET COUNT, AUTOMATED 296 10^3/uL (150-450); RED BLOOD COUNT 5.49 10^6/uL (4.30-6.10); WHITE BLOOD COUNT 10.5 10^3/uL (4.0-10.0)
[2024-07-25 15:24] LABS: ALBUMIN 3.6 G/DL (3.2-5.2); BILIRUBIN,TOTAL 0.5 MG/DL (0.3-1.2); CALCIUM LEVEL 10.2 MG/DL (8.3-10.6); CREATININE FOR GFR 1.31 MG/DL (0.70-1.30); CREATININE, URINE 134.1 MG/DL; GLOMERULAR FILTRATION RATE 55.6 (>35); HEMOGLOBIN A1c 6.1 % (4.0-6.0); MAU/CREAT RATIO 53.6 MCG/MG (0.0-30.0); TOTAL PROTEIN 7.1 G/DL (5.7-8.2)
== END ==
LOC: M PLALAB 12:53
PROVIDERS: ATTEND Nurse Practitioner Family
DX: E11.21 Type 2 diabetes mellitus with diabetic nephropathy (principal)

== ENCOUNTER 2024-08-02 08:00 | Outpatient (CLI) | payer MEDICARE ==
[~2024-08-02] VITALS: Ht 167.6 cm; Wt 84.0 kg
[2024-08-02 08:00] VITALS: BP 101/59; O2SAT 97
[2024-08-02] MEDS: IMMUNE GLOBULIN 10% 20 GM in IV 1 EA IV ONE (08:40)
[2024-08-02] MEDS: IMMUNE GLOBULIN 10% 10 GM in IV 1 EA IV ONE (08:43)
[2024-08-02] MEDS: IMMUNE GLOBULIN 10% 5 GM in IV 1 EA IV ONE (08:44)
[2024-08-02 09:15] VITALS: BP 144/87; O2SAT 97
[2024-08-02 09:45] VITALS: BP 131/66; O2SAT 97
[2024-08-02 10:15] VITALS: BP 139/70; O2SAT 98
[2024-08-02 11:43] VITALS: BP 168/88; O2SAT 98
== END 2024-08-02 11:45 ==
LOC: M INFU 08:00
PROVIDERS: ATTEND Registered Nurse
DX: G70.00 Myasthenia gravis without (acute) exacerbation (principal)
CPT/HCPCS: 96365; 96366; J1459

== ENCOUNTER 2024-08-03 08:00 | Outpatient (CLI) | payer MEDICARE ==
[~2024-08-03] VITALS: Ht 167.6 cm; Wt 84.0 kg
[2024-08-03 08:00] VITALS: BP 127/60; O2SAT 95
[2024-08-03] MEDS: IMMUNE GLOBULIN 10% 20 GM in IV 1 EA IV ONE (08:30)
[2024-08-03] MEDS: IMMUNE GLOBULIN 10% 5 GM in IV 1 EA IV ONE (08:32)
[2024-08-03] MEDS: IMMUNE GLOBULIN 10% 10 GM in IV 1 EA IV ONE (08:33)
[2024-08-03 09:00] VITALS: BP 116/59; O2SAT 95
[2024-08-03 09:30] VITALS: BP 122/64; O2SAT 96
[2024-08-03 10:00] VITALS: BP 126/65; O2SAT 98
[2024-08-03 10:30] VITALS: BP 137/74; O2SAT 97
[2024-08-03 11:15] VITALS: BP 150/76; O2SAT 96
== END 2024-08-03 11:30 ==
LOC: M INFU 08:00
PROVIDERS: ATTEND Registered Nurse
DX: G70.00 Myasthenia gravis without (acute) exacerbation (principal)
CPT/HCPCS: 96365; 96366; J1459

== ENCOUNTER → 2024-08-30 | Outpatient (CLI) | payer MEDICARE ==
[~2024-08-30] VITALS: Ht 167.6 cm; Wt 81.8 kg
[2024-08-30] MEDS: IMMUNE GLOBULIN 10% 20 GM in IV 1 EA IV ONE (08:22)
[2024-08-30] MEDS: IMMUNE GLOBULIN 10% 10 GM in IV 1 EA IV ONE (08:23)
[2024-08-30] MEDS: IMMUNE GLOBULIN 10% 5 GM in IV 1 EA IV ONE (08:24)
[2024-08-30 08:32] VITALS: BP 108/56; O2SAT 95
[2024-08-30 09:00] VITALS: BP 105/55; O2SAT 95
[2024-08-30 09:30] VITALS: BP 107/58; O2SAT 96
[2024-08-30 10:00] VITALS: BP 117/56; O2SAT 97
[2024-08-30 11:30] VITALS: BP 151/67; O2SAT 98
== END ==
LOC: M INFU 08:06
PROVIDERS: ATTEND Registered Nurse
DX: G70.00 Myasthenia gravis without (acute) exacerbation (principal)
CPT/HCPCS: 96365; 96366; J1459

== ENCOUNTER 2024-08-31 07:54 | Outpatient (CLI) | payer MEDICARE ==
[~2024-08-31] VITALS: Ht 167.6 cm; Wt 81.8 kg
[2024-08-31 08:06] VITALS: BP 133/61; O2SAT 93
[2024-08-31] MEDS: IMMUNE GLOBULIN 10% 20 GM in IV 1 EA IV ONE (08:19)
[2024-08-31] MEDS: IMMUNE GLOBULIN 10% 5 GM in IV 1 EA IV ONE (08:20)
[2024-08-31] MEDS: IMMUNE GLOBULIN 10% 10 GM in IV 1 EA IV ONE (08:21)
[2024-08-31 09:00] VITALS: BP 136/63; O2SAT 96
[2024-08-31 09:30] VITALS: BP 140/69; O2SAT 97
[2024-08-31 10:00] VITALS: BP 141/70; O2SAT 98
[2024-08-31 11:00] VITALS: BP 160/78; O2SAT 96
== END 2024-08-31 11:20 ==
LOC: M INFU 07:54
PROVIDERS: ATTEND Registered Nurse
DX: G70.00 Myasthenia gravis without (acute) exacerbation (principal)
CPT/HCPCS: 96365; 96366; J1459

== ENCOUNTER → 2024-11-14 | Outpatient (CLI) | payer MEDICARE ==
[~2024-11-14] MED LIST changes: +GLIP-318 PO; -GLIP5TAB20 PO
[2024-11-14 13:38] LABS: ALBUMIN 3.5 G/DL (3.2-5.2); ALKALINE PHOSPHATASE 76 U/L (40-129); ALT/SGPT 14 U/L (7.0-40); AST/SGOT 16 U/L (<34); BILIRUBIN,TOTAL 0.6 MG/DL (0.3-1.2); BLOOD UREA NITROGEN 19 MG/DL (9-23); CALCIUM LEVEL 9.7 MG/DL (8.3-10.6); CARBON DIOXIDE LEVEL 26 MMOL/L (20-31); CHLORIDE LEVEL 105 MMOL/L (98-107); CHOLESTEROL LEVEL 114 MG/DL (<200); CHOLESTEROL RISK RATIO 2.34 (<5); CREATININE FOR GFR 1.14 MG/DL (0.70-1.30); GLOMERULAR FILTRATION RATE > 60.0 (>35); GLUCOSE, FASTING 116 MG/DL (74-106); HDL CHOLESTEROL 48.7 MG/DL (>40); LDL CHOLESTEROL 45.5 MG/DL (<100); NON-HDL-C 65.3 MG/DL; POTASSIUM SERUM 4.8 MMOL/L (3.5-5.1); SODIUM LEVEL 140 MMOL/L (136-145); TOTAL PROTEIN 6.9 G/DL (5.7-8.2); TRIGLYCERIDES LEVEL 99 MG/DL (<150)
[2024-11-14 13:50] LABS: HEMOGLOBIN A1c 6.4 % (4.0-6.0)
== END ==
LOC: M PLALAB 10:41
PROVIDERS: ATTEND Nurse Practitioner Family
DX: E11.21 Type 2 diabetes mellitus with diabetic nephropathy (principal); E78.2 Mixed hyperlipidemia

== ENCOUNTER → 2025-03-27 | Outpatient (CLI) | payer MEDICARE ==
[~2025-03-27] MED LIST changes: -FLOM0.4C39 PO; +HYDR12.510 PO; -HYDR12CA PO; +TAMS-18 PO
[2025-03-27 17:43] LABS: BASO # 0.1 10^3/uL (0.0-0.2); BASO % 0.5 % (0.0-1.0); EOS # 0.2 10^3/uL (0.0-0.5); EOS % 1.9 % (0.0-3.0); LYMPH # 2.4 10^3/uL (1.5-5.0); LYMPH % 23.2 % (24.0-44.0); MONO # 1.0 10^3/uL (0.0-0.8); MONO % 9.3 % (2.0-8.0); NEUTROPHILS # 6.6 10^3/uL (1.5-8.5); NEUTROPHILS % 64.9 % (36.0-66.0); PLATELET COUNT, AUTOMATED 271 10^3/uL (150-450)
[2025-03-27 20:33] LABS: ALT/SGPT 15.0 U/L (7.0-40); AST/SGOT 21.0 U/L (<34); CALCIUM LEVEL 10.0 MG/DL (8.3-10.6); CARBON DIOXIDE LEVEL 23.0 MMOL/L (20-31); CHLORIDE LEVEL 107.0 MMOL/L (98-107); CHOLESTEROL LEVEL 116.0 MG/DL (<200); CHOLESTEROL RISK RATIO 2.48 (<5); CREATININE FOR GFR 1.29 MG/DL (0.70-1.30); CREATININE, URINE 75.7 MG/DL; GLOMERULAR FILTRATION RATE 55.0 (>35); LDL CHOLESTEROL 45.0 MG/DL (<100); MALB URINE SIEMENS 57.0 MG/L; MAU/CREAT RATIO 75.2 MCG/MG (0.0-30.0); NON-HDL-C 69.4 MG/DL; POTASSIUM SERUM 5.3 MMOL/L (3.5-5.1); SODIUM LEVEL 141.0 MMOL/L (136-145); TRIGLYCERIDES LEVEL 122.0 MG/DL (<150); VITAMIN B12 LEVEL 907.0 PG/ML (211-911)
[2025-03-28 01:12] LABS: ESTIMATED AVERAGE GLUCOSE 126.0 MG/DL (60-110)
== END ==
LOC: M PLALAB 13:30
PROVIDERS: ATTEND Nurse Practitioner Family
DX: E78.2 Mixed hyperlipidemia (principal); E11.21 Type 2 diabetes mellitus with diabetic nephropathy; I10 Essential (primary) hypertension; E53.8 Deficiency of other specified B group vitamins

== ENCOUNTER → 2025-06-26 | Outpatient (REF) | payer MEDICARE ==
[~2025-06-26] MED LIST changes: -EZET10TA21 PO; +EZET10TA57 PO
[2025-06-26 14:20] LABS: APPEARANCE, URINE CLEAR (CLEAR); BACTERIA, URINE AUTO NEGATIVE (NEGATIVE); BILIRUBIN, URINE AUTO NEGATIVE (NEGATIVE); BLOOD, URINE BLOOD NEGATIVE (NEGATIVE); GLUCOSE, URINE (UA) AUTO 3+ mg/dL (NEGATIVE); KETONE, URINE AUTO NEGATIVE (NEGATIVE); LEUKOCYTE ESTERASE, URINE AUTO NEGATIVE (NEGATIVE); NITRITE, URINE AUTO NEGATIVE (NEGATIVE); PROTEIN, URINE AUTO NEGATIVE (NEGATIVE); RBC, URINE AUTO 0 /HPF (0-3); SPECIFIC GRAVITY URINE AUTO 1.022 (1.002-1.035); SQUAMOUS EPITHELIAL CELL UR AU 0 /HPF (0-6); UROBILINOGEN, URINE AUTO 2.0 mg/dL (0.0-2.0); WBC, URINE AUTO 5 /HPF (0-3)
== END ==
LOC: M SMT 13:01
PROVIDERS: ATTEND Urology
DX: Z85.51 Personal history of malignant neoplasm of bladder (principal)
CPT/HCPCS: 51798; 81001; 88108; G0463

== ENCOUNTER → 2025-07-24 | Outpatient (REF) | payer MEDICARE ==
[2025-07-24 17:53] LABS: APPEARANCE, URINE CLEAR (CLEAR); BACTERIA, URINE AUTO NEGATIVE (NEGATIVE); BILIRUBIN, URINE AUTO NEGATIVE (NEGATIVE); BLOOD, URINE BLOOD NEGATIVE (NEGATIVE); GLUCOSE, URINE (UA) AUTO 3+ mg/dL (NEGATIVE); KETONE, URINE AUTO NEGATIVE (NEGATIVE); LEUKOCYTE ESTERASE, URINE AUTO NEGATIVE (NEGATIVE); MUCUS, URINE SMALL (NEGATIVE); NITRITE, URINE AUTO NEGATIVE (NEGATIVE); PROTEIN, URINE AUTO 1+ mg/dL (NEGATIVE); RBC, URINE AUTO 1 /HPF (0-3); SPECIFIC GRAVITY URINE AUTO 1.024 (1.002-1.035); SQUAMOUS EPITHELIAL CELL UR AU 0 /HPF (0-6); UROBILINOGEN, URINE AUTO 2.0 mg/dL (0.0-2.0); WBC, URINE AUTO 0 /HPF (0-3)
== END ==
LOC: M SMT 16:59
PROVIDERS: ATTEND Urology
DX: R31.0 Gross hematuria (principal)